=== PATIENT | female | born 1960 | race Caucasian/White ===

== ENCOUNTER 2019-09-21 00:10 | Day surgery (SDC) | payer BC, SELFPAY ==
[2019-09-19 11:08] VITALS: BMI 43.0
[2019-09-20 11:07] VITALS: BP 123/82; PULSE 75; RESP 18; TEMP 36.3; O2SAT 99
[2019-09-21] MEDS: LACTATED RINGERS 1,000 ML 150 ML IV CONT (06:47)
--- NOTE | 2019-09-21 07:23 | PM.IMHP ---
H&P: HPI History of Present Illness Chief complaint: Fam Hx Colon Ca Narrative: Alma Saucedo is a 59 year old female presents for surveillance colonoscopy. Last colonoscopy was in 2007 and had internal hemorrhoid. She denies any acute bowel habit changes, diarrhea, constipation, melena, hematochezia, abdominal pains or rectal pains. Denies any nausea, vomiting, dysphagia, oydnophagia. She does have GERD and is well controlled on pantoprazole. She has family hx of colon cancer in her mother diagnosed at the age of 60. Review of Systems Review of Systems: All systems reviewed & are unremarkable except as noted in HPI and below PMFSH Past Medical History Medical History (Updated 09/21/19 @ 07:27 by Ilda Blake, DIE BAKER) Anxiety Essential (primary) hypertension Gastro-esophageal reflux disease without esophagitis History of torn meniscus of left knee Hyperlipemia Spinal stenosis of lumbar region Unspecified asthma, uncomplicated Surgical History Surgical History (Updated 09/21/19 @ 07:27 by Ilda Blake, DIE BAKER) History of medial meniscus repair of right knee History of robot-assisted laparoscopic hysterectomy Hx of colonoscopy Hx of total hysterectomy Social History Social History Smoking status: Never smoker Second hand tobacco smoke exposure: No Alcohol intake: current Meds Home Medications and Allergies Home Medications Medication Instructions Recorded Confirmed Type temazepam 30 mg capsule 30 mg PO .hs PRN #90 cap 07/10/19 09/21/19 Rx atorvastatin 10 mg tablet 10 mg PO DAILY #30 tablet 07/25/19 09/19/19 Rx lorazepam 1 mg tablet 1 mg PO Q8H PRN #30 tablet 08/29/19 09/19/19 Rx atenolol 50 mg tablet 50 mg PO DAILY 09/05/19 09/19/19 History hydrocodone 5 mg-acetaminophen 325 1 tablet PO Q8H PRN 09/05/19 09/19/19 History mg tablet losartan 100 1 tablet PO DAILY 09/05/19 09/19/19 History mg-hydrochlorothiazide 12.5 mg tablet meloxicam 15 mg tablet 15 mg PO DAILY 09/05/19 09/19/19 History oxybutynin chloride 5 mg tablet 5 mg PO EVERY OTHER DAY 09/05/19 09/19/19 History pantoprazole 40 mg tablet,delayed 40 mg PO QAM 09/05/19 09/19/19 History release buspirone 5 mg PO TID 09/19/19 09/19/19 History cetirizine [Zyrtec] 10 mg PO DAILY 09/19/19 09/19/19 History escitalopram oxalate 20 mg PO DAILY 09/19/19 09/19/19 History Allergies Allergy/AdvReac Type Severity Reaction Status Date / Time terconazole Allergy Unknown Blister Verified 09/21/19 06:49 Vital Signs Vital Signs - 24 hr 09/20/19 11:07 Temperature 36.3 C L Pulse Rate 75 Respiratory Rate 18 Blood Pressure 123/82 Pulse Oximetry 99 Exam Const: General: cooperative, healthy appearing, comfortable, alert and awake Nutritional Appearance: average body habitus Orientation/consciousness: oriented to person, oriented to place, oriented to time and patient oriented x3 Limitations: no limitations HENMT: Head: normal to inspection and normocephalic Mouth: Yes moist mucous membranes and Yes lip abnormal (cold sore noted) Neck: Neck: normal visual inspection, supple and no JVD Carotids: no bruits Resp: Effort & Inspection: normal respiratory effort and no respiratory distress Auscultation: clear to auscultation bilaterally Cardio: Rate: regular rate Rhythm: regular rhythm Heart sounds: S1 normal heart sound present, S2 normal heart sound present, no gallops, no murmurs and no rubs GI: Inspection: normal to inspection and obesity GI Palp: No abdominal tenderness and No No hepatosplenomegaly present Percussion: Yes normal to percussion Auscultation: normal bowel sounds Rectal Exam: deferred Skin: General skin exam: normal color Lesions: no lesions Rashes: no rashes Neuro: General: oriented to person, oriented to place, oriented to time, patient oriented x3 and moves all extremities Cognition (Neuro): normal cognition Speech: normal speech Gait exam (Neuro): N
--- NOTE | 2019-09-21 07:24 | WPDANESEPPF ---
Anes - Initial Pre Proc Eval Procedure: Operation Date: 09/21/19 07:30 Proposed Procedures p Screening Colonoscopy - Juwan Durán DO Date/Time: 09/21/19 07:24 Surgeon: Juwan Durán DO Pre Op Diagnosis: Fam Hx Colon Ca Patient Data Age: 59 Gender: F Height: 5 ft 3 in Weight: 109 kg Last Vital Signs Temp 97.4 F L 09/20/19 11:07 Pulse 75 09/20/19 11:07 Resp 18 09/20/19 11:07 BP 123/82 09/20/19 11:07 Pulse Ox 99 09/20/19 11:07 Allergies Allergy/AdvReac Type Severity Reaction Status Date / Time terconazole Allergy Unknown Blister Verified 09/21/19 06:49 Home Medications Medication Instructions Recorded Confirmed Type temazepam 30 mg capsule 30 mg PO .hs PRN #90 cap 07/10/19 09/21/19 Rx atorvastatin 10 mg tablet 10 mg PO DAILY #30 tablet 07/25/19 09/19/19 Rx lorazepam 1 mg tablet 1 mg PO Q8H PRN #30 tablet 08/29/19 09/19/19 Rx atenolol 50 mg tablet 50 mg PO DAILY 09/05/19 09/19/19 History hydrocodone 5 mg-acetaminophen 325 1 tablet PO Q8H PRN 09/05/19 09/19/19 History mg tablet losartan 100 1 tablet PO DAILY 09/05/19 09/19/19 History mg-hydrochlorothiazide 12.5 mg tablet meloxicam 15 mg tablet 15 mg PO DAILY 09/05/19 09/19/19 History oxybutynin chloride 5 mg tablet 5 mg PO EVERY OTHER DAY 09/05/19 09/19/19 History pantoprazole 40 mg tablet,delayed 40 mg PO QAM 09/05/19 09/19/19 History release buspirone 5 mg PO TID 09/19/19 09/19/19 History cetirizine [Zyrtec] 10 mg PO DAILY 09/19/19 09/19/19 History escitalopram oxalate 20 mg PO DAILY 09/19/19 09/19/19 History Patient hx anesthesia problems: none Family hx anesthesia problems: none PMFSH Social History Social History Smoking status: Never smoker Second hand tobacco smoke exposure: No Alcohol intake: current Anes - Eval Final PreProcedure Day of Procedure 09/21/19 07:24 Patient weight: morbidly obese Heart: regular rate and rhythm Lungs: clear to auscultation Airway: Mallampati scale Neurological: alert and oriented Last oral intake: >/= 8 hours ASA classification: III Emergent: no Anesthetic plan: proceed Anesthesia type and monitoring: general GIVS and standard monitoring Informed Consent: The patient's anesthetic plan and its attendant risks and benefits were discussed with the patient/family/POA. Questions were solicited and answers provided to the satisfaction of the patient/family/POA.
[2019-09-21 08:00] VITALS: BP 99/64; PULSE 65; RESP 12; O2SAT 97
[2019-09-21 08:10] VITALS: BP 108/73; PULSE 64; RESP 22; O2SAT 97
[2019-09-21 08:20] VITALS: BP 117/74; PULSE 62; RESP 16; O2SAT 99
== END 2019-09-21 08:42 | disposition home or self-care (01) ==
PROVIDERS: PCP Internal Medicine; Visit Provider Internal Medicine Gastroenterology
PROC: 0DJD8ZZ Inspection of Lower Intestinal Tract, Via Natural or Artificial Opening Endoscopic (ICD-10-PCS; CPT 45378; principal; 2019-09-21 07:30)
DX: Z12.11 Encounter for screening for malignant neoplasm of colon (principal); D12.2 Benign neoplasm of ascending colon; K62.1 Rectal polyp; Z80.0 Family history of malignant neoplasm of digestive organs; I10 Essential (primary) hypertension; E78.5 Hyperlipidemia, unspecified; K21.9 Gastro-esophageal reflux disease without esophagitis; J45.909 Unspecified asthma, uncomplicated; F41.9 Anxiety disorder, unspecified; E66.01 Morbid (severe) obesity due to excess calories; Z68.41 Body mass index [BMI] 40.0-44.9, adult
CPT/HCPCS: 45380; 88305; J2704; J7120

== ENCOUNTER 2019-10-13 15:26 | Outpatient (CLI) | payer BC, SELFPAY ==
--- NOTE | 2019-10-13 15:40 | ECG_ITS ---
Measurements Intervals [place] Rate: 74 P: 52 DE: 164 QRS: 24 QRSD: 93 T: 10 QT: 402 QTc: 446 Interpretive Statements SINUS RHYTHM BORDERLINE ST-T WAVE ABNORMALITY- INFERIOR LEADS BORDERLINE ECG Electronically Signed On 10-13-2019 16:55:32 [employer]ES AND MARKETING [employer]NALYST by Martin Bell D.O.
== END 2019-10-13 15:27 | disposition home or self-care (01) ==
LOC: ANHCATHLAB 15:29
PROVIDERS: PCP Internal Medicine; Visit Provider Internal Medicine
DX: R00.2 Palpitations (principal); R94.31 Abnormal electrocardiogram [ECG] [EKG]
CPT/HCPCS: 93005

== ENCOUNTER 2020-01-11 15:28 | Outpatient (CLI) | payer BC, SELFPAY ==
--- NOTE | ~2020-01-11 | MR_ITS ---
EXAMINATION: MR shoulder RT wo con DATE: 01/11/2020 16:21 INDICATION: Right shoulder pain TECHNIQUE: Magnetic resonance imaging (MRI) of the right shoulder was performed without intravenous c ontrast. Sequences included axial PD-weighted FS FSE, coronal oblique PD-weighted FS FSE, coronal obl ique T2-weighted FS FSE, sagittal PD-weighted FS FSE, and sagittal T1-weighted SE. COMPARISON: Right shoulder radiographs dated 01/03/2020 FINDINGS: Coracoacromial arch: The acromion undersurface is curved in morphology (type II). Prominent thickening of the coracoacromi al ligament. Mild acromioclavicular osteoarthritis. Rotator cuff: Moderate supraspinatus and infraspinatus tendinopathy. Near full-thickness articular sided tear exten ding to centimeters AP along the superior and middle facet footplates of the supraspinatus and anteri or infraspinatus tendons. There is up to 1 cm medial retraction of the torn portion of the tendon. Th ere appears be remaining thin intact bursal surface to the tendon although small full-thickness perfo ration could not be absolutely excluded. The subscapularis and teres minor tendons are normal. Dorothy l rotator cuff muscle bulk and signal. Biceps tendon, glenoid labrum and glenohumeral cartilage: Long head of the biceps tendon is normal. There is a shallow tear at the posterosuperior chondral lab ral junction which begins at approximately the 12:00 position and extends posteriorly to the 9:30 pos ition. Glenohumeral cartilage is normal. Fluid: Small glenohumeral joint effusion with proportional extension of fluid along the long head biceps ten don sheath. No loose osteochondral bodies. Minimal fluid in the subacromial/subdeltoid bursa consiste nt with mild bursitis. Bones: Normal marrow signal with no edema, fracture or pathologic marrow replacing process. IMPRESSION: 1. Moderate-sized high-grade partial-thickness articular sided tear of the supraspinatus and anterior infraspinatus tendons. 2. Shallow tear at the posterosuperior chondral labral junction. 3. Mild subacromial/subdeltoid bursitis. 4. Mild acromioclavicular osteoarthritis. Reviewed, dictated and finalized at location A. IMPRESSION: 1. Moderate-sized high-grade partial-thickness articular sided tear of the supr aspinatus and anterior infraspinatus tendons. 2. Shallow tear at the posterosuperior chondral labral junction. 3. Mild subacromial/subdeltoid bursitis. 4. Mild acromioclavicular osteoarthritis.
== END 2020-01-11 15:29 | disposition home or self-care (01) ==
PROVIDERS: PCP Internal Medicine; Visit Provider Orthopaedic Surgery
DX: M75.81 Other shoulder lesions, right shoulder (principal); M75.111 Incomplete rotator cuff tear or rupture of right shoulder, not specified as traumatic; S43.491A Other sprain of right shoulder joint, initial encounter; M75.51 Bursitis of right shoulder; M19.011 Primary osteoarthritis, right shoulder
CPT/HCPCS: 73221

== ENCOUNTER 2020-02-08 12:24 | Outpatient (CLI) | payer BC, SELFPAY ==
[2020-02-08 13:34] LABS: Blood Urea Nitrogen 18 mg/dL (7-17); Calcium 9.3 mg/dL (8.4-10.2); Carbon Dioxide 27 mmol/L (22-30); Chloride 102 mmol/L (98-107); Estimated Glomerular Filt Rate > 60; Glucose 99 mg/dL (65-105); Potassium 3.9 mmol/L (3.4-5.0); Sodium 138 mmol/L (137-145)
== END 2020-02-08 12:25 | disposition home or self-care (01) ==
PROVIDERS: Anesthesiology; PCP Internal Medicine; Visit Provider Orthopaedic Surgery
DX: Z51.81 Encounter for therapeutic drug level monitoring (principal)
CPT/HCPCS: 36415; 80048

== ENCOUNTER 2020-02-14 00:50 | Outpatient (CLI) | payer BC, SELFPAY ==
[2020-02-14 18:07] LABS: SARS-CoV-2 RNA PCR Negative
== END 2020-02-14 00:51 | disposition home or self-care (01) ==
LOC: ANHCOVIDDT 00:50
PROVIDERS: PCP Internal Medicine; Visit Provider Orthopaedic Surgery
DX: Z01.818 Encounter for other preprocedural examination (principal); Z11.59 Encounter for screening for other viral diseases
CPT/HCPCS: 87635; C9803; U0003

== ENCOUNTER 2020-02-16 01:37 | Day surgery (SDC) | payer BC, SELFPAY ==
[2020-02-07 10:39] VITALS: BMI 45.7
[2020-02-16] VITALS (10 sets, daily range): BP systolic 117–147; BP diastolic 59–90; PULSE 69–83; RESP 11–19; TEMP 36.2–36.5; O2SAT 96–100
--- NOTE | 2020-02-16 07:06 | WPDHPUPDATE1 ---
History and Physical Update Update Date/Time: 02/16/20 07:06 History and Physical has been reviewed, including an updated exam of the patient. There are NO changes in the patient's condition. Risks, benefits, and alternatives have been discussed and questions answered. Patient agrees to proceed with procedure.
[2020-02-16] MEDS: ACETAMINOPHEN 500 MG TABLET 1000 MG PO (10:55)
--- NOTE | 2020-02-16 11:02 | WPDANESEPPF ---
Anes - Initial Pre Proc Eval Procedure: Operation Date: 02/16/20 13:00 Proposed Procedures p Right Shoulder Arthroscopic Rotator Cuff Repair, Proceed As Indicated - Alvarez Mensah MD Date/Time: 02/16/20 11:02 Surgeon: Alvarez Mensah MD Pre Op Diagnosis: Right Shoulder Rotator Cuff Tear Patient Data Age: 60 Gender: F Height: 5 ft 2 in Weight: 113.4 kg Allergies Allergy/AdvReac Type Severity Reaction Status Date / Time terconazole Allergy Unknown MOUTH Verified 02/07/20 10:40 BLISTERS Home Medications Medication Instructions Recorded Confirmed Type oxybutynin chloride 5 mg tablet 5 mg PO EVERY OTHER DAY 09/05/19 02/07/20 History buspirone 5 mg PO TID 09/19/19 02/07/20 History cetirizine [Zyrtec] 10 mg PO DAILY 09/19/19 02/07/20 History escitalopram oxalate 20 mg PO DAILY 09/19/19 02/07/20 History meloxicam 15 mg tablet 15 mg PO DAILY #90 tablet 10/23/19 02/07/20 Rx pantoprazole 40 mg tablet,delayed 40 mg PO QAM #90 tablet 11/21/19 02/07/20 Rx release atenolol 50 mg tablet 50 mg PO DAILY #90 tablet 11/25/19 02/07/20 Rx losartan 100 1 tablet PO DAILY #90 tablet 12/07/19 02/07/20 Rx mg-hydrochlorothiazide 12.5 mg tablet budesonide 90 mcg/actuation breath 2 inhalation INHALATION Q12H #1 12/15/19 02/07/20 Rx activated powder inhaler each albuterol sulfate 90 mcg/actuation 2 inhalation INHALATION Q4-6H PRN 12/22/19 02/07/20 Rx aerosol inhaler #25.5 gm hydrocodone 5 mg-acetaminophen 325 1 - 2 tablet PO Q6H PRN #30 tablet 02/01/20 02/07/20 Rx mg tablet atorvastatin 10 mg PO DAILY 02/07/20 02/07/20 History temazepam 30 mg PO HS PRN 02/07/20 02/07/20 History Patient hx anesthesia problems: none Family hx anesthesia problems: none PMFSH Past Medical History Medical History Anxiety Essential (primary) hypertension Gastro-esophageal reflux disease without esophagitis History of torn meniscus of left knee Hyperlipemia Rotator cuff tear, right Spinal stenosis of lumbar region Unspecified asthma, uncomplicated Surgical History Surgical History History of medial meniscus repair of right knee History of robot-assisted laparoscopic hysterectomy Hx of colonoscopy Hx of total hysterectomy Family History Family History Mother Carcinoma of colon Family history of arthritis Family history of malignant neoplasm of uterus Grandparent Family history of malignant neoplasm of breast Sibling Patient's sister is in good health Father Cerebrovascular accident Other Family history of malignant neoplasm of breast in first degree relative Social History Social History Smoking status: Never smoker Second hand tobacco smoke exposure: No Alcohol intake: current Drinks per week: 4 Spiritual care concerns: No Anes - Eval Final PreProcedure Day of Procedure 02/16/20 11:02 Patient weight: morbidly obese Heart: regular rate and rhythm Lungs: decreased breath sounds Airway: Mallampati scale class II Neurological: alert and oriented Last oral intake: >/= 8 hours Emergent: no Anesthetic plan: proceed Anesthesia type and monitoring: general ETT and standard monitoring Informed Consent: The patient's anesthetic plan and its attendant risks and benefits were discussed with the patient/family/POA. Questions were solicited and answers provided to the satisfaction of the patient/family/POA.
[2020-02-16] MEDS: KETOROLAC 15 MG/ML VIAL (*BKC) IV PUSH (11:10)
[2020-02-16] MEDS: LACTATED RINGERS 1,000 ML 30 ML IV CONT ×2 (11:10→14:24)
[2020-02-16] MEDS: ceFAZolin 2 GM/D5W 50 ML 2 GM/50 ML BAG IVPB (11:42)
[2020-02-16] MEDS: BUPIVACAINE/EPINEPHRINE 0.5% 30 ML VIAL INFILTRATE (12:22)
--- NOTE | 2020-02-16 14:19 | P.OP_ITS ---
Procedure Note - Detailed Date of procedure: 02/16/20 Pre-op diagnosis: Right Shoulder Rotator Cuff Tear Post-op diagnosis: other ( 1. Large rotator cuff tear. 2. Biceps tendonosis 3. Subacromial impingement.) Procedure performed: 1. Arthrosocopic rotator cuff repair. 2. Arthroscopic subacromial decompression. 3. Arthroscopic biceps tenodesis. Description of procedure: Large rotator cuff tear of the supra and infraspinatus. Mild retraction. C-shaped crescent stick shaped tear. [place] shaped tear. Biceps was partially ruptured. Arthroscopic tenodesis was performed through bone tunnels. Three bone tunnels were created for 9 simple sutures. Subacromial decompression was performed. The bursa and tissue under the acromion was markedly thickened. This may have accounted for the chronic impingement, or occurred as a consequence. Anesthesia: GETA Surgeon: Alvarez Mensah MD Estimated blood loss (mL): 20 Complications: None Disposition: PACU Findings: Operative detail: Preoperative antibiotics were given. An interscalene block was administered in the preoperative area. The patient was bought brought to the operating room. A general anesthetic was administered. The patient was carefully positioned in the beach chair position. The head and neck were carefully positioned. The non operative extremity was also carefully positioned. The shoulder was prepped and draped in the usual sterile fashion. Examination was performed. Standard posterior and anterior arthroscopic portals were established. Inflow achieved with the arthroscopic pump using saline and epinephrine. The glenohumeral joint was carefully inspected. The biceps tendon was released. The rotator cuff footprint was lightly decorticated with the arthroscopic visualization. The subscapularis was normal. The articular cartilage and labrum were normal. Attention was turned to the subacromial space. A complete bursectomy was performed. The rotator cuff and footprint were lightly debrided. A modest acromioplasty was performed. The tear configuration was carefully assessed. At this point, 3 tunnels were created at the rotator cuff. The ArthroTunneler technique was utilized. Three sutures were passed through each tunnel. All sutures were then passed through the cuff tissue; except the anterior tunnel suture which was placed through the biceps tendon and a locking loop stitch was passed. The sutures were tied arthroscopically. The arthroscopic instruments were removed. The wounds were closed with 3-0 Monocryl subcuticular suture and steri strips. There were no complications. A sling was applied and the patient brought to the recovery room.
--- NOTE | 2020-02-16 14:55 | SUR.PHASEI ---
1455 nebulizer,albuterol tx given.
== END 2020-02-16 16:36 | disposition home or self-care (01) ==
PROVIDERS: PCP Internal Medicine; Visit Provider Orthopaedic Surgery
PROC: (CPT 29805; principal; 2020-02-16 13:00)
DX: M75.101 Unspecified rotator cuff tear or rupture of right shoulder, not specified as traumatic (principal); M75.21 Bicipital tendinitis, right shoulder; M75.41 Impingement syndrome of right shoulder; I10 Essential (primary) hypertension; E78.5 Hyperlipidemia, unspecified; K21.9 Gastro-esophageal reflux disease without esophagitis; J45.909 Unspecified asthma, uncomplicated; F41.9 Anxiety disorder, unspecified; E66.01 Morbid (severe) obesity due to excess calories; Z68.42 Body mass index [BMI] 45.0-49.9, adult
CPT/HCPCS: 29827; 29828; 29826; A9270; J0330; J0690; J1100; J1885; J2250; J2405; J2704; J3010; J7120

== ENCOUNTER 2020-03-13 13:42 | Emergency (ER) | payer BC, SELFPAY ==
[2020-03-13] VITALS (7 sets, daily range): BP systolic 122–164; BP diastolic 68–96; PULSE 71–90; RESP 13–20; TEMP 36.3; O2SAT 97–99
--- NOTE | ~2020-03-13 | CT_ITS ---
EXAMINATION: CTA chest PE protocol EXAM DATE: 03/13/2020 15:57 INDICATION: Shortness of breath, elevated d-dimer. TECHNIQUE: Spiral CTA of the chest (pulmonary arteries) was performed with 100 cc Omnipaque 350 intr avenous contrast injection. Images were acquired during the pulmonary arterial phase. Coronal maxi mum intensity projection 3D-reconstructions were created by the technologist on dedicated workstation . Axial, coronal and sagittal reformatted images were reviewed. The dose-length product (DLP) for t his examination was 814.77 mGy-cm. The exposure was tailored according to patient size (auto mA exp osure control), and iterative reconstruction (ASIR) was used as additional dose reduction technique. There is no prior study for comparison. FINDINGS: Pulmonary arteries are well opacified and without intraluminal filling defects. No thora cic aortic dissection. The lungs are clear. There are no pleural or pericardial effusions. Trach eobronchial tree is patent. There is no mediastinal, hilar or axillary lymphadenopathy. There is no pneumothorax. Heart normal in size. No evidence of coronary arterial calcification. There is hepatic steatosis. There is mild thoracic spondylosis without osteoblastic or osteolytic lesions jony ntified. IMPRESSION: No pulmonary emboli or acute cardiopulmonary findings. Reviewed, dictated and finalized at location A.
--- NOTE | ~2020-03-13 | XR_ITS ---
XR chest 2V DATE: 03/13/2020 14:55 INDICATION: Shortness of breath and cough. TECHNIQUE: PA and lateral views COMPARISON: None FINDINGS: Normal heart size. No hilar or mediastinal enlargement. No pulmonary infiltrate or consolid ation, pleural effusion or pulmonary vascular congestion or pneumothorax. Included skeletal structures are unremarkable. IMPRESSION: Reviewed, dictated and finalized at location B. IMPRESSION:
--- NOTE | 2020-03-13 13:45 | ECG_ITS ---
Measurements Intervals [place] Rate: 79 P: 12 AR: 160 QRS: 48 QRSD: 96 T: 55 QT: 385 QTc: 443 Interpretive Statements SINUS RHYTHM BASELINE ARTIFACT- I, II, III, AVR, AVL, AVF, V1-V3 BORDERLINE ECG Electronically Signed On 03-13-2020 13:55:52 CDT by Martin Bell D.O.
[2020-03-13 14:09] LABS: Basophils Absolute Auto 0.1 K/mm3 (0.0-0.1); Basophils Percent Auto 0.5 % (0.2-1.2); Eosinophils Absolute Auto 0.1 K/mm3 (0-0.3); Eosinophils Percent Auto 0.5 % (0-4.4); Hemoglobin 14.3 g/dL (12.0-15.0); Immature Granulocyte Absolute 0.04 K/mm3 (0.00-0.031); Immature Granulocyte Percent A 0.4 % (0-0.5); Lymphocytes Absolute Auto 1.29 K/mm3 (0.9-3.2); Lymphocytes Percent Auto 12.8 % (18.3-44.2); Mean Corpuscular Volume 88.1 fl (80-100); Mean Platelet Volume 9.2 fl (7.4-10.4); Monocytes Absolute Auto 0.5 K/mm3 (0.1-0.6); Monocytes Percent Auto 5.3 % (2.6-8.5); Neutrophils Absolute Auto 8.1 K/mm3 (1.3-6.7); Neutrophils Percent Auto 80.5 % (45.5-73.1); Platelet Count Result 349 k/mm3 (150-375); Red Blood Count 4.77 M/mm3 (4.2-5.4); Red Cell Distribution Width 12.7 % (11.5-14.5); White Blood Count 10.1 K/mm3 (4.5-10.0)
[2020-03-13 14:30] LABS: Blood Urea Nitrogen 14 mg/dL (7-17); Calcium 9.2 mg/dL (8.4-10.2); Carbon Dioxide 24 mmol/L (22-30); Chloride 106 mmol/L (98-107); Estimated CRCL calculation 92 ml/min; Estimated Glomerular Filt Rate > 60; Glucose 123 mg/dL (65-105); Sodium 139 mmol/L (137-145)
[2020-03-13 15:38] LABS: D Dimer 0.53 ug/mL (<0.48)
--- NOTE | 2020-03-13 16:52 | ED.GENADULT ---
HPI - General Adult General Chief complaint: Shortness of Breath/Dyspnea Stated complaint: cough, SOB high D dimer Time Seen by Provider: 03/13/20 15:13 History of Present Illness HPI narrative: Patient is a 60 y/o female complaining of mild to moderate SOB for last 3 weeks. She states her SOB is worse since 1 week ago. She used her inhaler and Nebulizer, which did not help. She has some dry cough. She denies any fever. She had recent lab done and was told to come to ED for evaluation for abnormal D-Dimer. Of note, she had recent should surgery. Related Data Home Medications Medication Instructions Recorded Confirmed oxybutynin chloride 5 mg tablet 5 mg PO EVERY OTHER DAY 09/05/19 02/07/20 Zyrtec 10 mg PO DAILY 09/19/19 02/07/20 buspirone 5 mg PO TID 09/19/19 02/07/20 escitalopram oxalate 20 mg PO DAILY 09/19/19 02/07/20 atorvastatin 10 mg PO DAILY 02/07/20 02/07/20 temazepam 30 mg PO HS PRN 02/07/20 02/07/20 Allergies Allergy/AdvReac Type Severity Reaction Status Date / Time terconazole Allergy Unknown MOUTH Verified 03/12/20 09:16 BLISTERS Review of Systems Constitutional: Constitutional: Denies chills, Denies fever(s), Denies headache(s) and Denies weakness Eyes: Eyes: Denies blurry vision ENT: Denies headache(s) and Denies neck pain Cardiovascular: Cardiovascular: Denies chest pain and Reports dyspnea Respiratory: Respiratory: Reports cough and Reports dyspnea Gastrointestinal: Gastrointestinal: Denies abdominal pain, Denies diarrhea, Denies nausea and Denies vomiting Genitourinary: Genitourinary: Denies hematuria and Denies dysuria Musculoskeletal: Musculoskeletal: Denies back pain and Denies neck pain Neurologic: Denies headache(s) and Denies weakness PMF Past Medical History Medical History Anxiety Essential (primary) hypertension Gastro-esophageal reflux disease without esophagitis History of torn meniscus of left knee Hyperlipemia Rotator cuff tear, right Spinal stenosis of lumbar region Unspecified asthma, uncomplicated Surgical History Surgical History History of medial meniscus repair of right knee History of repair of right rotator cuff (~02/16/20) arthroscopic, SAD/bicep tenodesis History of robot-assisted laparoscopic hysterectomy Hx of colonoscopy Hx of total hysterectomy Family History Family History Mother Carcinoma of colon Family history of arthritis Family history of malignant neoplasm of uterus Grandparent Family history of malignant neoplasm of breast Sibling Patient's sister is in good health Father Cerebrovascular accident Other Family history of malignant neoplasm of breast in first degree relative Social History Social History Smoking status: Never smoker Second hand tobacco smoke exposure: No Alcohol intake: current Drinks per week: 4 Substance use: never Gender identity (if verbalized by the patient): Female Spiritual care concerns: No Exam Const: General: no acute distress and well developed Orientation/consciousness: oriented to person, oriented to place, oriented to time and patient oriented x3 HENMT: Head: normocephalic Ears: external ears normal General nose exam: Normal external nose present Eyes: General: appearance normal, both eyes and all related structures Conjunctivae: conjunctivae normal Neck: Neck: normal visual inspection and full ROM Chest: Chest palpation & inspection: normal inspection of the chest and no tenderness Resp: Effort & Inspection: normal respiratory effort and able to speak in complete sentences Cardio: Rate: regular rate Rhythm: regular rhythm GI: GI Palp: No abdominal tenderness and Yes Soft to palpation Skin: General skin exam: normal color and turgor normal Neuro:
[2020-03-13 17:51] LABS: Troponin I < 0.012 ng/mL (0.000-0.034)
[2020-03-14 14:05] LABS: SARS-CoV-2 RNA PCR Negative
== END 2020-03-13 18:31 | disposition home or self-care (01) ==
PROVIDERS: General Practice; Emergency Provider Emergency Medicine; PCP Internal Medicine
DX: J45.909 Unspecified asthma, uncomplicated (principal); F41.9 Anxiety disorder, unspecified; I10 Essential (primary) hypertension; K21.9 Gastro-esophageal reflux disease without esophagitis; E78.5 Hyperlipidemia, unspecified; Z20.828 Contact with and (suspected) exposure to other viral communicable diseases
CPT/HCPCS: 36415; 71046; 71275; 80048; 84484; 85025; 85380; 87635; 93005; 99284; C9803; Q9967; U0003

== ENCOUNTER → 2020-11-26 11:34 | Outpatient (CLI) | payer BC, SELFPAY ==
--- NOTE | ~2020-11-26 | MM_ITS ---
EXAMINATION: MM screening santy BI w felipa HISTORY: Screening mammogram TECHNIQUE: Craniocaudal and mediolateral oblique 3-D tomosynthesis images were obtained and synthetic 2-D images were generated. CAD analysis was submitted and interpreted. COMPARISON: 11/23/2018, 09/18/2017, 09/09/2016 bilateral digital screening mammogram examinations BREAST PARENCHYMAL COMPOSITION: There are scattered areas of fibroglandular density. FINDINGS: There is no evidence of suspicious mass, calcification, or architectural distortion to sugg est malignancy in either breast. There has been no suspicious interval change. IMPRESSION: 1. No mammographic evidence of malignancy. 2. Recommend routine screening mammography in one year. BI-RADS Category 1: Negative Reviewed, dictated and finalized at location A.
== END ==
PROVIDERS: PCP Internal Medicine; Visit Provider Obstetrics & Gynecology
DX: Z12.31 Encounter for screening mammogram for malignant neoplasm of breast (principal)
CPT/HCPCS: 77063; 77067

== ENCOUNTER → 2021-04-08 17:36 | Outpatient (CLI) | payer BC, SELFPAY ==
--- NOTE | ~2021-04-08 | MR_ITS ---
EXAMINATION: MR shoulder LT wo con DATE: 04/08/2021 18:49 INDICATION: Left shoulder pain. TECHNIQUE: Magnetic resonance imaging (MRI) of the left shoulder was performed without intravenous co ntrast. Sequences included axial PD-weighted FS FSE, coronal oblique PD-weighted FS FSE and T2-weight ed FS FSE, and sagittal oblique T2-weighted FS FSE and T1-weighted FSE. COMPARISON: Left shoulder radiographs 02/24/2021 FINDINGS: Coracoacromial arch: The acromion undersurface is curved in morphology (type II). There is mild acromioclavicular joint os teoarthritis. There is moderate subacromial/subdeltoid bursitis. Rotator cuff: There is a near full-thickness tear of anterior supraspinatus tendon measuring 9 mm anterior to poste rior by 5 mm proximal to distal. There is severe supraspinatus and infraspinatus tendinopathy. There is a small interstitial tear at the infraspinatus myotendinous junction. Teres minor tendon is normal . There is mild subscapularis tendinopathy. There is no asymmetric fatty atrophy of the rotator cuff muscle bellies. Biceps tendon and glenoid labrum: Biceps tendon is in bicipital groove. There is mild intra-articular biceps tendinopathy. The glenoid labrum is normal. Fluid: There is a small glenohumeral joint effusion. Bones/cartilage: Glenoid cartilage is normal. The humeral cartilage is normal. IMPRESSION: 1. Severe rotator cuff tendinopathy with near full-thickness tear of anterior supraspinatus tendon. S mall interstitial tear involving infraspinatus myotendinous junction. 2. Mild intra-articular biceps tendinopathy. 3. Mild acromioclavicular joint osteoarthritis. 4. Moderate subacromial/subdeltoid bursitis. 5. Small glenohumeral joint effusion. Reviewed, dictated and finalized at location A. IMPRESSION: 1. Severe rotator cuff tendinopathy with near full-thickness tear of anterior s upraspinatus tendon. Small interstitial tear involving infraspinatus myotendino us junction. 2. Mild intra-articular biceps tendinopathy. 3. Mild acromioclavicular joint osteoarthritis. 4. Moderate subacromial/subdeltoid bursitis. 5. Small glenohumeral joint effusion.
== END ==
PROVIDERS: PCP Internal Medicine; Visit Provider Physician Assistant Surgical
DX: M19.012 Primary osteoarthritis, left shoulder (principal); M75.52 Bursitis of left shoulder; M25.412 Effusion, left shoulder
CPT/HCPCS: 73221

== ENCOUNTER 2021-05-20 13:04 | Outpatient (CLI) | payer BC, SELFPAY ==
--- NOTE | 2021-05-20 13:15 | ECG_ITS ---
Measurements Intervals [place] Rate: 68 P: 52 RI: 186 QRS: 29 QRSD: 92 T: 18 QT: 391 QTc: 419 Interpretive Statements SINUS RHYTHM DELAYED PRECORDIAL R/S TRANSITION LOW QRS VOLTAGE IN PRECORDIAL LEADS BASELINE ARTIFACT- I, II, III, AVR, AVL, AVF BORDERLINE ECG Electronically Signed On 05-20-2021 13:35:04 CDT by Martin Bell D.O.
[2021-05-20 14:05] LABS: Anion Gap 8 mmol/L (8-16); Blood Urea Nitrogen 15 mg/dL (7-17); Calcium 9.4 mg/dL (8.4-10.2); Carbon Dioxide 29 mmol/L (22-30); Chloride 103 mmol/L (98-107); Estimated Glomerular Filt Rate > 60; Glucose 96 mg/dL (65-110); Potassium 4.1 mmol/L (3.4-5.0); Sodium 140 mmol/L (137-145)
== END 2021-05-20 13:05 | disposition home or self-care (01) ==
LOC: ANHSURGERY 13:09
PROVIDERS: Anesthesiology; PCP Internal Medicine; Visit Provider Orthopaedic Surgery
DX: Z01.818 Encounter for other preprocedural examination (principal); I10 Essential (primary) hypertension; E78.5 Hyperlipidemia, unspecified; Z79.899 Other long term (current) drug therapy
CPT/HCPCS: 36415; 80048; 93005

== ENCOUNTER 2021-05-23 00:13 | Day surgery (SDC) | payer BC, SELFPAY ==
[2021-05-15 14:12] VITALS: BMI 45.7
--- NOTE | 2021-05-22 08:29 | WPDANESEPPF ---
Anes - Initial Pre Proc Eval Procedure: Operation Date: 05/23/21 07:30 Proposed Procedures p Left Arthroscopic Rotator Cuff Repair, with Subacromial Decompression - Alvarez Mensah MD Date/Time: 05/22/21 08:29 Surgeon: Alvarez Mensah MD Pre Op Diagnosis: complete rotator cuff tear left shoulder Patient Data Age: 61 Gender: F Height: 1.57 m Weight: 113.4 kg Allergies Allergy/AdvReac Type Severity Reaction Status Date / Time terconazole Allergy Unknown MOUTH Verified 05/23/21 06:57 BLISTERS Home Medications Medication Instructions Recorded Confirmed Type Zyrtec 10 mg PO DAILY 09/19/19 05/23/21 History buspirone 5 mg PO TID 09/19/19 05/23/21 History escitalopram oxalate 20 mg PO DAILY 09/19/19 05/23/21 History albuterol sulfate 90 mcg/actuation 2 inhalation INHALATION Q4-6H PRN 12/22/19 05/23/21 Rx aerosol inhaler #25.5 gm alprazolam [Xanax] 0.5 mg PO DAILY 09/24/20 05/23/21 History fluticasone propionate 50 1 spray INTRANASAL DAILY 12/11/20 05/23/21 History mcg/actuation nasal spray,suspension hydroxychloroquine 200 mg tablet 200 mg PO DAILY 12/11/20 05/23/21 History lifitegrast 5 % eye drops in a 1 drp EACH EYE BID 12/11/20 05/23/21 History dropperette budesonide 90 mcg/actuation breath 2 inh INHALATION Q12H #3 ea 12/25/20 05/23/21 Rx activated powder inhaler atorvastatin 10 mg tablet 10 mg PO DAILY #90 tablet 01/01/21 05/23/21 Rx hydrocodone 5 mg-acetaminophen 325 1 tablet PO Q4-6H PRN #20 tablet 05/15/21 05/23/21 Rx mg tablet MDD 6 magnesium 1 tablet PO DAILY 05/15/21 05/23/21 History multivitamin 1 tablet PO DAILY 05/15/21 05/23/21 History pantoprazole 40 mg PO DAILY 05/15/21 05/23/21 History atenolol 50 mg tablet 50 mg PO DAILY #90 tablet 05/18/21 05/23/21 Rx losartan 100 1 tablet PO DAILY #90 tablet 05/18/21 05/23/21 Rx mg-hydrochlorothiazide 12.5 mg tablet Patient hx anesthesia problems: none Family hx anesthesia problems: none Results Review: All pre-operative results and documents have been reviewed as part of the pre-operative evaluation. [facility] Past Medical History Medical History (Updated 05/22/21 @ 08:30 by Brent Bazan MD) Anxiety Depression Essential (primary) hypertension Gastro-esophageal reflux disease without esophagitis History of torn meniscus of left knee Hyperlipemia Morbid obesity with BMI of 45.0-49.9, adult Rotator cuff tear, right Sjogren's syndrome Spinal stenosis of lumbar region Unspecified asthma, uncomplicated Surgical History Surgical History History of medial meniscus repair of right knee History of repair of right rotator cuff (~02/16/20) arthroscopic, SAD/bicep tenodesis History of robot-assisted laparoscopic hysterectomy Hx of colonoscopy Hx of total hysterectomy Family History Family History Mother Carcinoma of colon Family history of arthritis Family history of malignant neoplasm of uterus Grandparent Family history of malignant neoplasm of breast Sibling Patient's sister is in good health Father Cerebrovascular accident Other Family history of malignant neoplasm of breast in first degree relative Social History Social History Smoking status: Never smoker Second hand tobacco smoke exposure: No Alcohol intake: current Drinks per week: 2 Substance use: never Substance use type: does not use Living arrangements: with family Gender identity (if verbalized by the patient): Female Spiritual care concerns: No Anes - Eval Final PreProcedure Day of Procedure 05/22/21 08:29 Patient weight: morbidly obese Heart: regular rate and rhythm Lungs: clear to auscultation and normal air movement Airway: Mallampati scale class II Neurological: alert and oriented Last oral intake: >/= 8 hours ASA clas
[2021-05-23] VITALS (8 sets, daily range): BP systolic 103–132; BP diastolic 59–76; PULSE 75–83; RESP 16–22; TEMP 36.1–36.2; O2SAT 92–100
[2021-05-23] MEDS: KETOROLAC 15 MG/ML VIAL (*BKC) IV PUSH (06:49)
[2021-05-23] MEDS: ACETAMINOPHEN 500 MG TABLET 1000 MG PO (06:49)
[2021-05-23] MEDS: LACTATED RINGERS 1,000 ML 30 ML IV CONT (06:50)
--- NOTE | 2021-05-23 07:03 | WPDANESPNB ---
Anes - Peripheral Nerve Block Date/Time: 05/23/21 07:03 I have discussed with the patient/family/POA the placement of a peripheral nerve block for post-operative pain management, including associated risks, benefits, complications, and side effects. Alternative methods of post-operative analgesia were detailed. Questions were solicited and answers provided to the satisfaction of the patient/family/POA. Time-Out: A pre-procedural Time-Out was completed immediately before starting the procedure and confirmed: Patient Identification, Site, Procedure, Patient Position and the Availability of Requisite Equipment. Clinical Indications: Acute post-operative pain management requested by the operative surgeon. Nerve Block Insertion Note Anes-nerve block: supraclavicular left Patient position: supine Skin prep: chlorhexidine Needle: 22 gauge, stimulating, insulated echogenic needle. Needle length: 80 mm Technique: ultrasound (in plane) Injectate: bupivacaine 0.5% with epi 5 mcg/ml (20cc) Observations: tolerated well Complications: none Procedure start time:: 745 Procedure end time:: 750
--- NOTE | 2021-05-23 07:43 | WPDHPUPDATE1 ---
History and Physical Update Update Date/Time: 05/23/21 07:43 History and Physical has been reviewed, including an updated exam of the patient. There are NO changes in the patient's condition. Risks, benefits, and alternatives have been discussed and questions answered. Patient agrees to proceed with procedure.
[2021-05-23] MEDS: ONDANSETRON INJ 4 MG/2 ML VIAL IV PUSH (10:21)
--- NOTE | 2021-05-23 16:27 | W.PM.PROC2 ---
Procedure Note - Detailed Date of Procedure 05/23/21 Pre-op Diagnosis Complete rotator cuff tear left shoulder Post-op Diagnosis other (1. Left rotator cuff tear 2. Subacromial impingement) Procedure Performed 1. Arthroscopic rotator cuff repair 2. Arthroscopic subacromial decompression Surgeon Alvarez Mensah MD State Auditor Danyelle Godinez PA-C Anesthesia general and regional ( interscalene block) Findings Large crescentic supraspinatus tear with mild retraction. Mild synovitis. Biceps and subscapularis normal. Description of Procedure Physician plant attendant or assistant operator, Danyelle Godinez PA-C, required for surgery; including patient positioning, draping, arthroscopic camera operation, maintaining instrument position, suture retrieval, wound closure, and dressing and sling placement. Preoperative antibiotics were given. An interscalene block was administered in the preoperative area. The patient was bought brought to the operating room. A general anesthetic was administered. The patient was carefully positioned in the beach chair position. The head and neck were carefully positioned. The non operative extremity was also carefully positioned. The shoulder was prepped and draped in the usual sterile fashion. Examination was performed. Standard posterior and anterior arthroscopic portals were established. Inflow achieved with the arthroscopic pump using saline and epinephrine. The glenohumeral joint was carefully inspected. The supraspinatus tear was identified but there were no other significant pathological findings. Cartilage was normal. Subscapularis and biceps intact. Mild synovitis. Attention was turned to the subacromial space. A complete bursectomy was performed. The rotator cuff and footprint were lightly debrided. A modest acromioplasty was performed. The tear configuration was carefully assessed. At this point, 2 tunnels were created at the rotator cuff. The ArthroTunneler technique was utilized. Three sutures were passed through each tunnel. All sutures were then passed through the cuff tissue. The sutures were tied arthroscopically. The arthroscopic instruments were removed. The wounds were closed with 3-0 Monocryl subcuticular suture and steri strips. There were no complications. A sling was applied and the patient brought to the recovery room. Estimated Blood Loss -25.0 Pathology none sent Complications No immediate complications Condition stable Disposition PACU
== END 2021-05-23 12:15 | disposition home or self-care (01) ==
PROVIDERS: PCP Internal Medicine; Visit Provider Orthopaedic Surgery
PROC: (CPT 29805; principal; 2021-05-23 07:30)
DX: M75.122 Complete rotator cuff tear or rupture of left shoulder, not specified as traumatic (principal); M75.42 Impingement syndrome of left shoulder; M65.812 Other synovitis and tenosynovitis, left shoulder; G89.18 Other acute postprocedural pain; E78.5 Hyperlipidemia, unspecified; K21.9 Gastro-esophageal reflux disease without esophagitis; E66.01 Morbid (severe) obesity due to excess calories; Z68.42 Body mass index [BMI] 45.0-49.9, adult; Z79.51 Long term (current) use of inhaled steroids
CPT/HCPCS: 64415; 29826; 29827; 36415; 80048; 93005; A9270; J0330; J1100; J1885; J2250; J2405; J2704; J2710; J3010; J7120

== ENCOUNTER → 2022-01-28 13:30 | Outpatient (CLI) | payer BC, SELFPAY ==
--- NOTE | ~2022-01-28 | MM_ITS ---
EXAMINATION: MM screening [facility] BI w [place] HISTORY: Screening mammogram TECHNIQUE: Craniocaudal and mediolateral oblique 3-D tomosynthesis images were obtained and synthetic 2-D images were generated. CAD analysis was submitted and interpreted. COMPARISON: 11/26/2020, 11/23/2018, bilateral screening mammogram examinations BREAST PARENCHYMAL COMPOSITION: There are scattered areas of fibroglandular density. FINDINGS: There is no evidence of suspicious mass, calcification, or architectural distortion to sugg est malignancy in either breast. There has been no suspicious interval change. IMPRESSION: 1. No mammographic evidence of malignancy. 2. Recommend routine screening mammography in one year. BI-RADS Category 1: Negative Reviewed, dictated and finalized at location A.
== END ==
PROVIDERS: PCP Internal Medicine; Visit Provider Obstetrics & Gynecology
DX: Z12.31 Encounter for screening mammogram for malignant neoplasm of breast (principal)
CPT/HCPCS: 77063; 77067

== ENCOUNTER 2022-03-18 11:49 | Outpatient (CLI) | payer BC, SELFPAY ==
--- NOTE | ~2022-03-18 | CT_ITS ---
EXAMINATION: CT sinus wo con DATE: 03/18/2022 12:02 INDICATION: Congestion TECHNIQUE: Computed tomography (CT) of the paranasal sinuses was performed without contrast. Iterativ e reconstruction technique was employed. Exam dose: 267.62 mGy-cm total exam DLP. COMPARISON: None FINDINGS: There is rightward deviation of the nasal septum. Mild suyapa bullosa of right middle nasal turbinate. Intralamellar cell of left middle nasal turbinat e Moderate soft tissue swelling of the nasal turbinates, left greater than right. The ostiomeatal units are patent bilaterally. There is slight mucoperiosteal thickening in the lower aspect of the left maxillary sinus and minimal focal soft tissue thickening along the posterior aspect of the left sphenoid sinus. The paranasal si nuses are otherwise normally aerated, without fluid levels. Normal development and aeration of the mastoid air cells. Middle and inner ear apparatus appear normal bilaterally. IMPRESSION: Rightward deviation of nasal septum Mild suyapa bullosa of right middle nasal turbinate Intralamellar cell of left middle nasal turbinate Minimal mucoperiosteal thickening of left maxillary and left sphenoid sinuses Reviewed, dictated and finalized at Location A. Reviewed, dictated and finalized at location B.
== END 2022-03-18 11:50 ==
LOC: MICIMG 11:50
PROVIDERS: PCP Internal Medicine; Visit Provider Otolaryngology
DX: R09.82 Postnasal drip (principal); R09.81 Nasal congestion; J34.89 Other specified disorders of nose and nasal sinuses; J34.3 Hypertrophy of nasal turbinates; J34.2 Deviated nasal septum; J32.9 Chronic sinusitis, unspecified
CPT/HCPCS: 70486

== ENCOUNTER → 2022-03-23 13:28 | Outpatient (CLI) | payer BC, SELFPAY ==
--- NOTE | ~2022-03-23 | XR_ITS ---
EXAMINATION:[id number] DATE: 03/23/2022 13:48 INDICATION: Neck pain TECHNIQUE: AP, lateral, lateral swimmers and odontoid views of the cervical spine are provided. COMPARISON: None FINDINGS: There are 2 mm of retrolisthesis of C5 on C6. There is severe loss of intervertebral disc s pace height at C5-6. The odontoid is intact. No fracture is identified. The vertebral body heights ar e normal. There is reversal of the normal cervical lordosis. There is moderate facet and uncovertebra l joint osteoarthritis. Prevertebral soft tissues are normal. IMPRESSION: 1. Severe cervical spondylosis at C5-6. Reviewed, dictated and finalized at location A.
== END ==
PROVIDERS: PCP Internal Medicine; Visit Provider Internal Medicine
DX: M54.2 Cervicalgia (principal); M47.812 Spondylosis without myelopathy or radiculopathy, cervical region
CPT/HCPCS: 72040

== ENCOUNTER 2022-04-03 14:23 | Outpatient (CLI) | payer BC, SELFPAY ==
--- NOTE | ~2022-04-03 | MR_ITS ---
EXAMINATION: MR cervical spine wo con DATE: 04/03/2022 14:58 INDICATION: Severe cervical spondylosis. TECHNIQUE: Magnetic resonance imaging (MRI) of the cervical spine was performed without intravenous c ontrast. Sequences included sagittal T2-weighted FSE, sagittal T2-weighted FS FSE, sagittal T1-weight ed FSE, axial MERGE, and axial T2-weighted FSE. COMPARISON: Cervical spine radiographs 03/23/2022 FINDINGS: There is 2 mm retrolisthesis of C5 on C6. There is kyphosis of cervical spine. Vertebral maverick dy heights are normal. There is severely decreased disc height at C5-C6. The spinal cord signal inten sity is normal. The following disc levels are specifically discussed: C2-C3: The disc does not extend beyond the endplate margin. There is mild left uncovertebral joint os teoarthritis. There is mild bilateral facet joint osteoarthritis. There is no neural foraminal stenos is. There is no central canal stenosis. C3-C4: The disc does not extend beyond the endplate margin. There is mild left uncovertebral joint os teoarthritis. There is moderate right and severe left facet joint osteoarthritis. There is moderate l eft neural foraminal stenosis. There is no central canal stenosis. C4-C5: The disc is bulging. There is mild bilateral uncovertebral joint osteoarthritis. There is tong re right and moderate left facet joint osteoarthritis. There is mild right neural foraminal stenosis. There is no central canal stenosis. C5-C6: The disc is bulging. There is severe bilateral uncovertebral joint osteoarthritis. There is mo derate right and mild left facet joint osteoarthritis. There is severe bilateral neural foraminal valerie nosis. There is mild central canal stenosis. C6-C7: The disc does not extend beyond the endplate margin. There is moderate bilateral uncovertebral joint osteoarthritis. There is severe right and mild left facet joint osteoarthritis. There is mild right neural foraminal stenosis. There is no central canal stenosis. C7-T1: The disc does not extend beyond the endplate margin. There is no uncovertebral joint osteoarth ritis. There is moderate bilateral facet joint osteoarthritis. There is mild bilateral neural foramin al stenosis. There is no central canal stenosis. IMPRESSION: 1. Severe spondylosis at C5-C6 and mild spondylosis at other levels. Reviewed, dictated and finalized at location A.
== END 2022-04-03 14:24 ==
LOC: MICIMG 14:23
PROVIDERS: PCP Internal Medicine; Visit Provider Physician Assistant
DX: M47.812 Spondylosis without myelopathy or radiculopathy, cervical region (principal)
CPT/HCPCS: 72141

== ENCOUNTER 2023-01-22 12:15 | Outpatient (CLI) | payer BC, SELFPAY ==
--- NOTE | ~2023-01-22 | US_ITS ---
US thyroid INDICATION: Thyroid nodule TECHNIQUE: Real-time sonographic images of the thyroid gland were obtained. COMPARISON: No prior studies for comparison. FINDINGS: The right thyroid lobe measures 4 x 1.5 x 1.4 cm. The left thyroid lobe measures 3.6 x 1.5 x 1.3 cm. In the right lobe there is a small benign-appearing 3 mm cyst. In the left lobe there is a 11 x 8 x 7 mm slightly hypoechoic solid mass which is wider than tall, smoothly marginated without e chogenic foci, TR 4. Normal Doppler signal in the thyroid gland. IMPRESSION: 1. Left thyroid mass measuring 11 mm, TR 4, likely benign. Follow-up ultrasound in 12 months recomme nded. Reviewed, dictated and finalized at location A. IMPRESSION: 1. Left thyroid mass measuring 11 mm, TR 4, likely benign. Follow-up ultrasoun d in 12 months recommended.
== END 2023-01-22 12:16 ==
PROVIDERS: PCP Internal Medicine; Visit Provider Registered Nurse
DX: E04.9 Nontoxic goiter, unspecified (principal)
CPT/HCPCS: 76536

== ENCOUNTER → 2023-04-02 12:07 | Outpatient (CLI) | payer BC, SELFPAY ==
--- NOTE | ~2023-04-02 | MM_ITS ---
EXAMINATION: MM screening [facility] BI w [place] HISTORY: Screening mammogram TECHNIQUE: Craniocaudal and mediolateral oblique 3-D tomosynthesis images were obtained and synthetic 2-D images were generated. CAD analysis was submitted and interpreted. COMPARISON: 01/28/2022, 11/23/2018 BREAST PARENCHYMAL COMPOSITION: There are scattered areas of fibroglandular density. FINDINGS: No suspicious mass, calcification, or architectural distortion are identified in either karyn ast to suggest malignancy. There has been no suspicious interval change. IMPRESSION: 1. No mammographic evidence of malignancy. 2. Recommend routine screening mammography in one year. BI-RADS Category 1: Negative Reviewed, dictated and finalized at location A.
== END ==
PROVIDERS: PCP Registered Nurse; Visit Provider Registered Nurse
DX: Z12.31 Encounter for screening mammogram for malignant neoplasm of breast (principal)
CPT/HCPCS: 77063; 77067

== ENCOUNTER 2023-10-21 13:51 | Outpatient (CLI) | payer BC, SELFPAY ==
--- NOTE | ~2023-10-21 | XR_ITS ---
EXAMINATION: [id number] DATE: 10/21/2023 14:12 INDICATION: Left knee pain. TECHNIQUE: 2 views of left knee standing were obtained. COMPARISON: None. FINDINGS: There is varus angulation at the knee. No fracture. There is severe osteoarthritis of media l compartment, mild osteoarthritis of lateral compartment, and moderate osteoarthritis of patellofemo ral compartment. No knee joint effusion. IMPRESSION: 1. Severe left knee osteoarthritis. Reviewed, dictated and finalized at location A.
== END 2023-10-21 13:52 ==
LOC: MICIMG 13:53
PROVIDERS: PCP Nurse Practitioner Family; Visit Provider Nurse Practitioner Family
DX: M17.12 Unilateral primary osteoarthritis, left knee (principal)
CPT/HCPCS: 73560

== ENCOUNTER 2024-01-24 12:44 | Outpatient (CLI) | payer OTHER, SELFPAY ==
--- NOTE | ~2024-01-24 | US_ITS ---
EXAMINATION: US thyroid DATE: 01/24/2024 13:14 INDICATION: Disorder of thyroid, unspecified. TECHNIQUE: Multiple ultrasound images of the thyroid were obtained. COMPARISON: Ultrasound 01/22/2023 FINDINGS: The right thyroid lobe measures 4.9 x 1.7 x 1.7 cm. The left thyroid lobe measures 4.3 x 1.6 x 1.5 c m. In the left thyroid lobe, there is a 1.2 cm solid, hypoechoic, wider than tall nodule with smooth margin without echogenic foci (TI-RADS TR4), stable from 01/22/2023. In the right thyroid lobe, there is a 1.2 cm solid, hypoechoic, wider than tall nodule with ill-defined margin without echogenic foci (TR4). IMPRESSION: 1. Thyroid nodules. Thyroid ultrasound is recommended in one year. Reviewed, dictated and finalized at location E.
== END 2024-01-24 12:45 ==
LOC: MICIMG 12:47
PROVIDERS: PCP Internal Medicine; Visit Provider Registered Nurse
DX: E04.2 Nontoxic multinodular goiter (principal)
CPT/HCPCS: 76536

== ENCOUNTER 2024-04-03 12:47 | Outpatient (CLI) | payer OTHER, SELFPAY ==
--- NOTE | ~2024-04-03 | MM_ITS ---
EXAMINATION: MM screening [facility] BI w [place] HISTORY: Screening TECHNIQUE: Craniocaudal and mediolateral oblique 3-D tomosynthesis images were obtained and synthetic 2-D images were generated. CAD analysis was submitted and interpreted. COMPARISON: Comparison to multiple prior studies sequentially, with oldest reviewed study dated 08/2016. BREAST PARENCHYMAL COMPOSITION: Not dense: There are scattered areas of fibroglandular density. FINDINGS: There is no evidence of suspicious mass, calcification, or architectural distortion to sugg est malignancy in either breast. There has been no suspicious interval change. IMPRESSION: 1. No mammographic evidence of malignancy. 2. Recommend routine screening mammography in one year. BI-RADS Category 1: Negative Reviewed, dictated and finalized at location B.
== END 2024-04-03 12:48 ==
LOC: MICIMG 12:48
PROVIDERS: PCP Family Medicine; Visit Provider Obstetrics & Gynecology
DX: Z12.31 Encounter for screening mammogram for malignant neoplasm of breast (principal)
CPT/HCPCS: 77063; 77067

== ENCOUNTER 2025-03-08 10:46 | Outpatient (CLI) | payer OTHER, SELFPAY ==
--- OUTSIDE RECORDS SUMMARY | 2025-03-08 10:50 | XMS_ITS | Clinical Summary ---
Author Organization [facility] Address [address] [place] [address] Care Team Providers Care Dehairing Machine Tender Name Role Phone Danny Wynn DO Primary Care Provider [phone] Source Comments [facility],non-owned Affiliates and Associated Physician Practices is amultiple site organization consisting of ambulatory clinics and hospital sitesin [place], [place], [place] and [place]. This disclosure is being madepursuant to the Care Everywhere program and may not contain all information available regarding this patient. Last updated 18.[facility] Allergies No known active allergies Medications * Be aware that medications may not be up to date on this document. Alwaysverify current medications with the patient. losartan-hydroC HLOROthiazide (HYZAAR) 100-12.5 MG tablet Take 1 tablet by mouth once daily Active atorvastatin (LIPITOR) 10 MG tablet Take 10 mg by mouth at bedtime Active pantoprazole (PROTONIX) 40 MG packet Take 40 mg by mouth once daily Active escitalopram (LEXAPRO) 20 MG tablet Take 20 mg by mouth once daily Active cetirizine (ZYRTEC ALLERGY) 10 MG tablet Take 10 mg by mouth once daily Active busPIRone (BUSPAR) 5 MG tablet Take 5 mg by mouth 3 times daily Active albuterol HFA (PROAIR HFA) 108 (90 Base) MCG/ACT inhaler Inhale 2 puffs by mouth every 6 hours as needed Active azelastine (Astepro) 205.5 MCG/SPRAY nasal spray USE 1 TO 2 SPRAYS IN EACH NOSTRIL TWICE DAILY 02/13/2022 Active Qvar RediHaler 40 MCG/ACT inhaler Inhale 1 (one) puff by mouth 2 times daily 03/13/2022 Active cyclobenzaprine (Flexeril) 10 MG tablet Take 1 (one) tablet by mouth 3 times daily as needed 03/18/2022 Active HYDROcodone-gutierrez taminophen (Merrill) 5-325 MG tablet Take 1 (one) tablet by mouth 3 times daily as needed 06/28/2022 Active Xiidra 5 % opthalmic solution 12/19/2020 Active propranolol CR 24hr (Inderal LA) 80 MG capsule Take 1 (one) capsule by mouth once daily 06/30/2022 Active Active Problems Problem Noted Date Diagnosed Date Neck pain 07/09/2022 Social History Tobacco Use Types Packs/Day Years Used Date Smoking Tobacco: Never Smokeless Tobacco: Never Tobacco Cessation:Counseling Given: Not Answered Alcohol Use Standard Drinks/Week Comments Yes 0 (1 standard drink = 0.6 oz pur e alcohol) Comments No Sex and Gender Information Value Date Recorded Sex Assigned at Not on file Legal Sex Female 12:56 PM FITNESS AND WELLNESS COORDINATOR Gender Identity Not on file Sexual Orientation Not on file Last Filed Vital Signs Vital Sign Reading Time Taken Comments Blood Pressure 130/78 07/09/2022 9:56 AM FITNESS AND WELLNESS COORDINATOR Pulse 77 07/09/2022 9:56 AM FITNESS AND WELLNESS COORDINATOR Temperature 36.5 C (97.7 F) 07/09/2022 9:56 AM FITNESS AND WELLNESS COORDINATOR Respiratory Rate 16 07/09/2022 9:56 AM FITNESS AND WELLNESS COORDINATOR Oxygen Saturation 97% 07/09/2022 9:56 AM FITNESS AND WELLNESS COORDINATOR Inhaled Oxygen Concentration - - Weight 119.9 kg (264 lb 6.4 oz) 07/09/2022 9:56 AM FITNESS AND WELLNESS COORDINATOR Height 157.5 cm (5' 2) 07/09/2022 9:56 AM FITNESS AND WELLNESS COORDINATOR Body Mass Index 48.36 07/09/2022 9:56 AM FITNESS AND WELLNESS COORDINATOR Plan of Treatment Health Maintenance Due Date Last Done Comments COLOGUARD (AGES 45-75) - COL ON CA SCREENING 1962 COLON MONITORING 1962 COLONOSCOPY - COLON CA SCREENING 1962 CT COLONOGRAPHY - COLON CA SCREENING 1962 Colorectal Cancer Screening 1962 FIT - COLON CA SCREENING 1962 FLEX SIG - COLON CA SCREENING 1962 MAMMOGRAM 1962 HIV SCREENING 1977 HEPATITIS C SCREENING 02/04/1980 DTAP/TDAP/TD VACCINES (1 - Tdap) 1981 PAP SMEAR 1983 PNEUMOCOCCAL VACCINE 50+ (1 of 1 - PCV) 02/09/2012 ZOSTER VACCINE (1 of 2) 02/09/2012 Respiratory Syncytial Virus (RSV) Vaccine Pt: or over 60 yrs (1 - Risk 60-74 years 1-dose series) 2022 SCREENING FOR DIABETES 07/09/2022 COVID-19 VACCINE (1 - 2023-2 5 season) 2024 DEPRESSION SCREENING 08/09/2024 INFLUENZA VACCINE (#1) 2025 HEPATITIS B VACCINE Aged Out No longe r eligible based on patient's age to complete this topic HIB VACCINE Aged Out No longer eligi ble based on patient's age to complete this topic HPV VACCINE Aged Out No longer eligi ble based on patient's age to complete this topic MENINGOCOCCAL (Group B) VACC INE SHARED DECISION-MAKING Aged Out No longer eligibl e based on patient's age to complete this topic MENINGOCOCCAL GROUPS A/C/Y/W VACCINE Aged Out No longer eligible b ased on patient's age to complete this topic Insurance [employer] Care Teams Dehairing Machine Tender Relationship Specialty Start Date End Date Danny Wynn DO [address] [place] [address] PCP - General 07/26/18
--- OUTSIDE RECORDS SUMMARY | 2025-03-08 10:50 | XMS_ITS | Clinical Summary ---
Author Organization [facility] Address [address] [facility] [address] [place] [address] Phone Care Team Providers Care Vineyard Supervisor Name Role Phone Danny Wynn DO Primary Care Provider [phone] Allergies Active Allergy Reactions Criticality Noted Date Comments Other-Food Allergen (Not Found In Search) Other (see Comments) 10/05/2019 Patient states she is unsure of the medication, but a female medication caused her mouth to break out in hives Social History Tobacco Use Types Packs/Day Years Used Date Smoking Tobacco: Never Assessed Comments Unknown Sex and Gender Information Value Date Recorded Sex Assigned at Not on file Legal Sex Female 7:37 PM CDT Gender Identity Not on file Sexual Orientation Not on file Plan of Treatment Health Maintenance Due Date Last Done Comments Hepatitis C Virus (HCV) Screening 1962 TdaP Immunization 1962 Pap Smear 1983 Cervical Cancer Screening (CCS) 02/09/1992 HPV/Cotest 02/09/1992 Cologuard 2007 Immunochemical Fecal Occult Blood 2007 Pneumococcal Immunization (5 0+ years) (1 of 1 - PCV) 02/09/2012 Zoster Immunization (1 of 2) 02/09/2012 SARS-COV-2 Immunization (1 - 2023- season) 2024 Colonoscopy 09/21/2024 09/21/2019 Colorectal Cancer Screening 09/21/2024 Influenza Immunization (#1) 2025 Respiratory Syncytial Virus (RSV) Immunization (Adult) (1 - 1-dose 75+ series) 2037 Hepatitis B Immunization Aged Out No longer eligible based on patient's age to complete this topic Human Papillomavirus (HPV) Immunization Aged Out No longer eligible b ased on patient's age to complete this topic Meningococcal Immunization (ACWY) Aged Out No longer eligible based on patient's age to complete this topic Rotavirus Immunization Aged Out No lo nger eligible based on patient's age to complete this topic Procedures Procedure Name Priority Date/Time Associated Diagnosis Comments HM COLONOSCOPY Routine 09/21/2019 from Last 3 Months or Most Recently Relevant to Health Maintenance Results * HM COLONOSCOPY (09/21/2019) Juwan Durán DO PROCEDURE/MINOR SURGICAL ORDERA BLES Final Result from Last 3 Months or Most Recently Relevant to Health Maintenance Insurance Care Teams Vineyard Supervisor Relationship Specialty Start Date End Date Danny Wynn DO [address] [place] [address] PCP - General Internal Medicine 09/29/19
--- OUTSIDE RECORDS SUMMARY | 2025-03-08 10:50 | XMS_ITS | Patient Health Record ---
Author Organization [facility] Address [address] [place] [address] Care Team Providers Care Latex Fashions Designer Name Role Phone Danny Wynn DO Primary Care Provider Mirna Vargas Unavailable [phone] Uyen Hickey Unavailable [phone] Allergies Allergen (clinical drug ingredient) Drug/Non Drug Allergy documented on EMR Reaction Allergy Type Onset Date Status fezolinetant Veozkaylin hives Drug Allergy Acti ve Reason For Referral No Information Medications Medication SIG (Take, Route, Frequency, Duration) Notes Start Date End Date Status Pantoprazole Sodium 40 MG TAKE 1 TABLET BY MOUTH ONCE DAILY Oral; Duration: 90 Days Active Cyclobenzaprine HCl 5 MG TAKE 1 TABLET B Y MOUTH THREE TIMES A DAY NEEDED FOR MUSCLE SPASMS Oral; Duration: 30 Days Active ALPRAZolam 0.5 MG Oral 12/17/2023 A ctive HYDROcodone-Acetaminophen 5-325 MG TAKE 1 TABLET BY MOUTH THREE TIMES DAILY NEEDED Oral; Duration: 30 Days Active Advair Diskus 250-50 MCG/ACT INHALE 1 PU FF TWICE A DAY Inhalation; Duration: 30 Days Active Dicyclomine HCl 20 MG 20 MG ORALLY THREE TIMES A DAY Oral; Duration: 90 Days Active busPIRone HCl 10 MG TAKE 2 TABLETS EVERY DAY BY ORAL ROUTE IN THE MORNING FOR 90 DAYS. Oral; Duration: 90 Days Active Atorvastatin Calcium 10 MG 10 MG ORALLY DAILY TAKE 1 TABLET BY MOUTH DAILY Oral; Duration: 90 Days Active Losartan Potassium-HCTZ 100-12.5 MG TAKE 1 TABLET BY MOUTH EVERY DAY Oral; Duration: 90 Days Active Propranolol HCl ER 80 MG 80 MG ORALLY DA TANIKA Oral; Duration: 90 Days Active Montelukast Sodium 10 MG TAKE 1 TABLET B Y MOUTH EVERY DAY Oral; Duration: 90 Days Active Pantoprazole Sodium 40 MG TAKE 1 TABLET BY MOUTH ONCE DAILY Oral; Duration: 90 Days Active Escitalopram Oxalate 20 MG TAKE 1 TABLET BY MOUTH EVERY DAY FOR 90 DAYS; Duration: 90 Active Immunizations Vaccine Route Administration Date Status Comme nts Pfizer [employer] Covid-19 Vac cine 2nd dose Unknown 12/19/2020 Administered Pfizer [employer] Covid-19 Vac cine 2nd dose Unknown 01/10/2021 Administered Pfizer [employer] Covid-19 Vac cine 2nd dose Unknown 08/05/2021 Administered Social History Sex Assigned At : Social History Observation Description Sex Assigned At Female Problems Problem Type SNOMED Code ICD Code Onset Dates Problem Status W/U Status Risk Notes Problem Mild recurrent major depression (93015918) Major depressive disorder, recurrent, mild (F33.0) 4 Active confirmed Problem Moderate recurrent major depression (69965224) Major depressive disorder, recurrent, moderate (F33.1) Active confirmed Problem Generalized anxiety disorder (93871084) Generalized anxiety disorder (F41.1) 4 Active confirmed Problem Post-traumatic stress disorder (75494690) Post-traumatic stress disorder, unspecified (F43.10) 4 Active confirmed Problem Long-term current use of drug therapy (860223538) Other penitentiary (current) drug therapy (Z79.899) 4 Active confirmed Problem Obsessive-compul sive disorder (782026005) Obsessive-compu lsive disorder, unspecified (F42.9) 4 Active confirmed Vital Signs Height-cm 158.75 cm 03/16/2024 Weight-kg 112.76 kg 03/16/2024 Height 62.50 in 03/16/2024 Weight 248.6 lbs 03/16/2024 BMI 44.74 kg/m2 03/16/2024 Encounters Encounter Location Date Provider Diagnosis [facility] [address] [address] [address] [facility] [address] [place] [address] 03/16/2024 Mirna Swann Major depressive disorder, recurrent, mild F33.0 ; Generalized anxiety disorder F41.1 ; Other penitentiary (current) drug therapy Z79.899 ; Obsessive-compulsive disorder, unspecified F42.9 and Post-traumatic stress disorder, unspecified F43.10 [facility] [email or web address] [address] [place] [address] 03/29/2024 Uyen Hickey Post-traumatic stres s disorder, unspecified F43.10 ; Generalized anxiety disorder F41.1 ; Obsessive-compulsive disorder, unspecified F42.9 and Major depressive disorder, recurrent, moderate F33.1 [facility] [employer] [facility] [address] [place] [address] 06/13/2024 Mirna Yuepepe [facility] [employer] [facility] [address] [place] [address] 06/14/2024 Mirna Navidogpepe [facility] [employer] [facility] [address] [place] [address] 06/14/2024 Uyen Hickey Assessments Encounter Date Diagnosis (ICD Code) Assessment Notes Treatment Notes Treatment Clinical Notes Section Notes 03/16/2024 Major depressive disorder, recurrent, mild (ICD-10 - F33.0) Preventing Depression From Coming Back: Care Instructions material was published, Learning About Depression material was published, Learning About Depression Screening material was published 1. Mild recurrent major depression -Lexapro 20 mg daily- no refill needed today educated on all medications, benefits, side effects and risk, and educated on depression, anxiety, and , mood d/o and educated on compliance of medications, appointment's, continue therapy discussion with patient about course of treatment and patient instructions. SSRI/SNRI side effects discussed including but not limited to, gastric upset, nausea, vomiting, diarrhea and/or constipation, weight changes, sexual side effects including loss of libido, increased suicidal thoughts/behavio rs in children and young adults, and serotonin syndrome. schedule labs and PCP US thyroid scheduled seen AUTO TRANSMISSION SPECIALIST 12/16/22 Prescription Monitoring Report reviewed 2. Generalized anxiety disorder - Buspar to Take 2 tabs Buspar 10 mg a day in am- no refill needed today hx letter for pain management stopping Ativan and no benzo prescribed by DANITZA related going to pain management for pain control Medication Management and Follow-Up- Plan:- Schedule follow-up appointments every 2-3 months to monitor the patient's response to the medication regimen.- Reinforce the importance of avoiding recreational drug use due to potential neurotoxicity and interactions with prescribed medications. 3. Insomnia disorder related to another mental disorder -PCP sleep study CBT therapy for sleep 4. Complex posttraumatic stress disorder -therapy 5. Obsessive-compul sive disorder -therapy continue 6. Long-term drug therapy Discussion Notes continue therapy 03/16/2024 Generalized anxiety disorder (ICD-10 - F41.1) Learning About Generalized Anxiety Disorder material was published, Generalized Anxiety Disorder: Care Instructions material was published, Learning About Anxiety Disorders material was published 1. Mild recurrent major depression -Lexapro 20 mg daily- no refill needed today educated on all medications, benefits, side effects and risk, and educated on depression, anxiety, and , mood d/o and educated on compliance of medications, appointment's, continue therapy discussion with patient about course of treatment and patient instructions. SSRI/SNRI side effects discussed including but not limited to, gastric upset, nausea, vomiting, diarrhea and/or constipation, weight changes, sexual side effects including loss of libido, increased suicidal thoughts/behavio rs in children and young adults, and serotonin syndrome. schedule labs and PCP US thyroid scheduled seen AUTO TRANSMISSION SPECIALIST 12/16/22 Prescription Monitoring Report reviewed 2. Generalized anxiety disorder - Buspar to Take 2 tabs Buspar 10 mg a day in am- no refill needed today hx letter for pain management stopping Ativan and no benzo prescribed by DANITZA related going to pain management for pain control Medication Management and Follow-Up- Plan:- Schedule follow-up appointments every 2-3 months to monitor the patient's response to the medication regimen.- Reinforce the importance of avoiding recreational drug use due to potential neurotoxicity and interactions with prescribed medications. 3. Insomnia disorder related to another mental disorder -PCP sleep study CBT therapy for sleep 4. Complex posttraumatic stress disorder -therapy 5. Obsessive-compul sive disorder -therapy continue 6. Long-term drug therapy Discussion Notes continue therapy 03/29/2024 Generalized anxiety disorder (ICD-10 - F41.1) 03/29/2024 Post-traumatic stress disorder, unspecified (ICD-10 - F43.10) 03/29/2024 Obsessive-compu lsive disorder, unspecified (ICD-10 - F42.9) 03/16/2024 Other terminal carman (current) drug therapy (ICD-10 - Z79.899) Medication Refill: Care Instructions material was published 1. Mild recurrent major depression -Lexapro 20 mg daily- no refill needed today educated on all medications, benefits, side effects and risk, and educated on depression, anxiety, and , mood d/o and educated on compliance of medications, appointment's, continue therapy discussion with patient about course of treatment and patient instructions. SSRI/SNRI side effects discussed including but not limited to, gastric upset, nausea, vomiting, diarrhea and/or constipation, weight changes, sexual side effects including loss of libido, increased suicidal thoughts/behavio rs in children and young adults, and serotonin syndrome. schedule labs and PCP US thyroid scheduled seen AUTO TRANSMISSION SPECIALIST 12/16/22 Prescription Monitoring Report reviewed 2. Generalized anxiety disorder - Buspar to Take 2 tabs Buspar 10 mg a day in am- no refill needed today hx letter for pain management stopping Ativan and no benzo prescribed by DANITZA related going to pain management for pain control Medication Management and Follow-Up- Plan:- Schedule follow-up appointments every 2-3 months to monitor the patient's response to the medication regimen.- Reinforce the importance of avoiding recreational drug use due to potential neurotoxicity and interactions with prescribed medications. 3. Insomnia disorder related to another mental disorder -PCP sleep study CBT therapy for sleep 4. Complex posttraumatic stress disorder -therapy 5. Obsessive-compul sive disorder -therapy continue 6. Long-term drug therapy Discussion Notes continue therapy 03/16/2024 Obsessive-compu lsive disorder, unspecified (ICD-10 - F42.9) Obsessive-Compu lsive Disorder: Care Instructions material was published 1. Mild recurrent major depression -Lexapro 20 mg daily- no refill needed today educated on all medications, benefits, side effects and risk, and educated on depression, anxiety, and , mood d/o and educated on compliance of medications, appointment's, continue therapy discussion with patient about course of treatment and patient instructions. SSRI/SNRI side effects discussed including but not limited to, gastric upset, nausea, vomiting, diarrhea and/or constipation, weight changes, sexual side effects including loss of libido, increased suicidal thoughts/behavio rs in children and young adults, and serotonin syndrome. schedule labs and PCP US thyroid scheduled seen AUTO TRANSMISSION SPECIALIST 12/16/22 Prescription Monitoring Report reviewed 2. Generalized anxiety disorder - Buspar to Take 2 tabs Buspar 10 mg a day in am- no refill needed today hx letter for pain management stopping Ativan and no benzo prescribed by DANITZA related going to pain management for pain control Medication Management and Follow-Up- Plan:- Schedule follow-up appointments every 2-3 months to monitor the patient's response to the medication regimen.- Reinforce the importance of avoiding recreational drug use due to potential neurotoxicity and interactions with prescribed medications. 3. Insomnia disorder related to another mental disorder -PCP sleep study CBT therapy for sleep 4. Complex posttraumatic stress disorder -therapy 5. Obsessive-compul sive disorder -therapy continue 6. Long-term drug therapy Discussion Notes continue therapy 03/29/2024 Major depressive disorder, recurrent, moderate (ICD-10 - F33.1) 03/16/2024 Post-traumatic stress disorder, unspecified (ICD-10 - F43.10) Post-Traumatic Stress Disorder (PTSD): Care Instructions material was published 1. Mild recurrent major depression -Lexapro 20 mg daily- no refill needed today educated on all medications, benefits, side effects and risk, and educated on depression, anxiety, and , mood d/o and educated on compliance of medications, appointment's, continue therapy discussion with patient about course of treatment and patient instructions. SSRI/SNRI side effects discussed including but not limited to, gastric upset, nausea, vomiting, diarrhea and/or constipation, weight changes, sexual side effects including loss of libido, increased suicidal thoughts/behavio rs in children and young adults, and serotonin syndrome. schedule labs and PCP US thyroid scheduled seen AUTO TRANSMISSION SPECIALIST 12/16/22 Prescription Monitoring Report reviewed 2. Generalized anxiety disorder - Buspar to Take 2 tabs Buspar 10 mg a day in am- no refill needed today hx letter for pain management stopping Ativan and no benzo prescribed by DANITZA related going to pain management for pain control Medication Management and Follow-Up- Plan:- Schedule follow-up appointments every 2-3 months to monitor the patient's response to the medication regimen.- Reinforce the importance of avoiding recreational drug use due to potential neurotoxicity and interactions with prescribed medications. 3. Insomnia disorder related to another mental disorder -PCP sleep study CBT therapy for sleep 4. Complex posttraumatic stress disorder -therapy 5. Obsessive-compul sive disorder -therapy continue 6. Long-term drug therapy Discussion Notes continue therapy Plan Of Treatment No Information Insurance Providers Payer Name Payer Address Payer Phone Subscriber Number Group Number Insured Name Patient Relationship to Insured Coverage Start Date Coverage End Date [facility] [address] [place] [phone] [id number] [employer] Self - patient is the insured Medical (General) History Medical History History ICD Code Problems: Complex posttraumatic stress d isorder Generalized anxiety disorder History of SARS-CoV-2 Insomnia disorder related to another men dominga disorder Long-term drug therapy Mild recurrent major depression Moderate recurrent major depression Obsessive-compulsive disorder Sjgren's syndrome , Surgical History Surgery Date(Month/Year) Hysterectomy/revise vagina (62007)
--- OUTSIDE RECORDS SUMMARY | 2025-03-08 10:51 | XMS_ITS | Clinical Summary ---
Author Organization [facility] [place] [address] Address [address] [place] [id number] Care Team Providers Care Supervisor Filling And Packing Name Role Phone Radha Carrillo NP Primary Care Provider [phone] Allergies Active Allergy Reactions Criticality Noted Date Comments Amoxicillin-Pot Clavulanate Other (See comments) 10/25/2024 Stomach upset Celecoxib Hives Medium 11/27/2024 Doxycycline Hives Medium 10/30/2024 Fezolinetant Hives Medium 03/21/2024 Propantheline Hives Medium 02/16/2025 Terconazole Blisters High 02/16/2025 Mouth blisters Medications azelastine 205.5 mcg (0.15 %) spray,non-aerosol USE 1 TO 2 SPRAYS IN EACH NOSTRIL TWICE DAILY 022 Active cetirizine (ZyrTEC) 10 mg tablet Take 1 tablet (10 mg total) by mouth daily Active dicyclomine (BENTYL) 20 mg tablet Take 1 tablet (20 mg total) by mouth 3 (three) times a day as needed Active fluticasone propion-salmetero L (Advair Diskus) 250-50 mcg/dose diskus inhaler Inhale 1 puff daily as needed Active HYDROcodone-aceta minophen (NORCO) 5-325 mg per tablet TAKE 1 TABLET BY MOUTH THREE TIMES DAILY NEEDED Oral for 30 Days 022 Active Lactobacillus acidophilus (Probiotic) 10 billion cell capsule Active senna (SENOKOT) 8.6 mg tablet Take 1 tablet by mouth daily as needed for constipation Active nystatin powder External Active naloxone (NARCAN) 4 mg/actuation spray,non-aerosol Nasal Active albuterol HFA (PROVENTIL HFA,VENTOLIN HFA,PROAIR HFA) 90 mcg/actuation inhalerIndication s:Mild intermittent asthma without complication Inhale 2 puffs every 6 (six) hours as needed for wheezing or shortness of breath 3 each 1 Active losartan-hydroCHL OROthiazide (HYZAAR) 100-12.5 mg per tablet TAKE 1 TABLET BY MOUTH EVERY DAY 90 tablet Active propranolol LA (INDERAL LA) 80 mg 24 hr capsule 80 MG ORALLY DAILY 90 capsule 3 Active Additional Information Patient taking differently: 80 mg oral Daily, Reported on 02/28/2025 atorvastatin (LIPITOR) 10 mg tablet 10 MG ORALLY DAILY TAKE 1 TABLET BY MOUTH DAILY 90 tablet 3 Active escitalopram (LEXAPRO) 20 mg tabletIndications :Major depressive disorder, recurrent, mild TAKE 1 TABLET BY MOUTH EVERY DAY 90 tablet 3 025 Active busPIRone (BUSPAR) 15 mg tabletIndications :ABA (generalized anxiety disorder) Take 2 tablets (30 mg total) by mouth 2 (two) times a day 120 tablet 3 Active Additional Information Patient taking differently: 15 mgoral 2 times daily, Reported on 02/28/2025 methocarbamoL (ROBAXIN) 500 mg tabletIndications :Chronic bilateral low back pain without sciatica,Chronic neck pain TAKE 1 TABLET (500 MG TOTAL) BY MOUTH 2 (TWO) TIMES A DAY NEEDED FOR MUSCLE SPASMS 60 tablet [address] (PROTONIX) 40 mg EC tablet Take 1 tablet (40 mg total) by mouth daily 90 tablet 1 Active montelukast (SINGULAIR) 10 mg tablet TAKE 1 TABLET BY MOUTH EVERY DAY 90 tablet 1 Active naproxen (NAPROSYN) 500 mg tabletIndications :Primary osteoarthritis of both knees Take 1 tablet (500 mg total) by mouth 2 (two) times a day with meals 60 tablet 1 025 2024 Active ipratropium (ATROVENT) 21 mcg (0.03 %) nasal spray Active desonide (DESOWEN) 0.05 % ointment Active oxyCODONE (ROXICODONE) 5 mg immediate release tabletIndications :Pain Take 1 tablet (5 mg total) by mouth every 4 (four) hours as needed for pain [address] (PROTONIX) 40 mg EC tablet Take 1 tablet (40 mg total) by mouth daily 024 2024 Discontinued(R eorder) montelukast (SINGULAIR) 10 mg tablet TAKE 1 TABLET BY MOUTH EVERY DAY 90 tablet 025 2024 Discontinued cyclobenzaprine (FLEXERIL) 5 mg tablet TAKE 1 TABLET BY MOUTH THREE TIMES A DAY NEEDED FOR MUSCLE SPASMS Oral; Duration: 30 Days 2024 Discontinued(A lternate therapy) Hospital, Clinic, or Other Facility Administered Medication Ordered Dose Route Frequency Start Date End Date Status lidocaine (XYLOCAINE) 10 mg/mL (1 %) injection 2 mLIndications:Admini stration of Local Anesthesia 2 mL One-Time Injection 02/16/2025 5 Ended methylPREDNISolone acetate (DEPO-medrol) injection 40 mgIndications:Primar y osteoarthritis of both knees,Right knee pain, unspecified chronicity 40 mg intra-artic One-Time Injection 02/16/2025 5 Ended Active Problems Problem Noted Date Diagnosed Date Mass of right finger 02/16/2025 Osteophyte of right hand 02/16/2025 Primary osteoarthritis of both knees 01/30/2025 Left knee pain 12/28/2024 Assessment & Plan (12/28/2024 3:36 PM CDT): Acute on chronic left knee pain, worsening Started on Medrol Dosepak Encouraged to continuing icing and to wear brace if perceives benefit Discussed referral to orthopedic surgeon when interested Acute non-recurrent pansinusitis 10/18/2024 Assessment & Plan (10/18/2024 9:38 AM CDT): Started on antibiotic Supportive care measures discussed Strict return precautions given Myxoid cyst 09/21/2024 Assessment & Plan (09/21/2024 3:26 PM AGRICULTURE CONSULTANT): Referral made to orthopedic hand specialist Insomnia 09/21/2024 Assessment & Plan (09/21/2024 3:28 PM AGRICULTURE CONSULTANT): Uncontrolled Started on hydroxyzine as directed as needed Need for vaccination 05/24/2024 Assessment & Plan (05/24/2024 5:50 AM CDT): Discussed screening/vaccination in depth and patient understands all risk and benefits associated with proposed therapies and currently declines, has been encouraged to call if changes mind. Annual physical exam 05/24/2024 Assessment & Plan (05/24/2024 5:51 AM CDT): Reviewed past and current medical history, surgical history, social history, family history, current medications, and allergies. The chart was updated to identify any changes in these areas. A ROS and PE were performed. Medications were ordered and labs were reviewed. Discussed screening colonoscopy, well woman exam/cervical cancer screening, screening mammogram, monthly breast self-exams, bone density testing, and recommended immunizations. Patient will follow-up in 6 months for further evaluation and management or sooner if needed. Irritable bowel syndrome wit h both constipation and diarrhea 05/24/2024 Assessment & Plan (05/24/2024 5:54 AM CDT): Chronic, stable, controlled with medication Continued on dicyclomine as directed as needed Hypertension, essential 05/24/2024 Assessment & Plan (12/07/2024 2:49 PM CDT): Controlled Continued on losartan-hydrochlorothiazide Assessment & Plan (10/18/2024 9:38 AM CDT): Controlled Continued on losartan-hydrochlorothiazide Assessment & Plan (09/21/2024 3:26 PM AGRICULTURE CONSULTANT): Uncontrolled Continued on losartan-hydrochlorothiazide Recommended 2 gram low sodium diet and weight loss for better control of hypertension Assessment & Plan (05/24/2024 5:54 AM CDT): Chronic, stable, controlled with medication Continued on losartan-hydrochlorothiazide Mild intermittent asthma without complication Assessment & Plan (10/18/2024 9:38 AM CDT): Controlled Continued on Singulair daily, Advair and albuterol PRN Assessment & Plan (05/24/2024 5:59 AM CDT): Chronic, stable, controlled with medication Continued on Singulair daily, Advair and albuterol PRN Not immune to hepatitis B virus 05/22/2024 Assessment & Plan (05/24/2024 5:49 AM CDT): Offered hepatitis-B series, not interested at this time Hyperlipidemia, unspecified 05/22/2024 Assessment & Plan (05/24/2024 5:49 AM CDT): Chronicity, stability unknown, uncontrolled with elevated LDL Recommended low-fat low-cholesterol diet high in fiber Continued on atorvastatin Will monitor for safety Prediabetes 05/22/2024 Assessment & Plan (10/18/2024 9:38 AM CDT): Recommended diet low in concentrated sweets, such as desserts, juice, soda, and sweet tea, and limiting starchy foods, such as white potatoes, rice, pasta, and corn Referral made to endocrinology per patient Assessment & Plan (05/23/2024 2:48 PM CDT): Chronicity and stability unknown recommend diet low in concentrated sweets, such as desserts, juice, soda, and sweet tea, and limiting starchy foods, such as white potatoes, rice, pasta, and corn Will monitor for stability ABA (generalized anxiety disorder) 03/24/2024 Assessment & Plan (12/28/2024 3:33 PM CDT): Uncontrolled, worsening Increased dose of buspirone from 20 mg BID to 30 mg BID Continued on Lexapro 20 mg daily Assessment & Plan (12/07/2024 2:49 PM CDT): Uncontrolled Increased buspirone from 10 mg 2 tablets daily to 20 mg in the morning and 10 mg in the evening, then gave option of increasing to 20 mg BID Continued on Lexapro 20 mg daily Encouraged to reestablish with therapist Assessment & Plan (11/22/2024 1:51 PM CDT): Uncontrolled Increased buspirone from 10 mg 2 tablets daily to 20 mg in the morning and 10 mg in the evening, then gave option of increasing to 20 mg BID Continued on Lexapro 20 mg daily Encouraged to reestablish with therapist Assessment & Plan (10/18/2024 9:37 AM CDT): Uncontrolled Continued on Lexapro and propranolol, states she stopped buspirone before starting hydroxyzine, however did not tolerate hydroxyzine, states made her anxiety worse and caused insomnia Restarted hydroxyzine 5 mg twice daily times 3-4 days, then increasing to 10 mg twice daily, gave option of increasing to 15 mg twice daily after 3-4 days Assessment & Plan (09/21/2024 3:25 PM AGRICULTURE CONSULTANT): Uncontrolled Continued on Lexapro, buspirone, and propranolol Started on hydroxyzine PRN Assessment & Plan (05/24/2024 5:55 AM CDT): Chronic, stability unknown Reviewed ABA-7=10, uncontrolled, currently under the are of psychiatry Continued on Lexapro, buspirone, and propranolol Assessment & Plan (03/24/2024 6:59 AM CDT): Chronicity and stability unknown Reviewed ABA-7=5 Continued on Lexapro, buspirone, and propranolol Encouraged to follow-up with therapist as recommended Depression, major, recurrent, moderate Assessment & Plan (12/07/2024 2:49 PM CDT): Controlled Continued on Lexapro 20 mg daily Encouraged to reestablish with therapist Advised if suicidal ideation or thoughts of harming self or others, to go to ER and/or call [phone] for assistance, agreed to contract for safety. Assessment & Plan (11/22/2024 1:51 PM CDT): Controlled Continued on Lexapro 20 mg daily Encouraged to reestablish with therapist Advised if suicidal ideation or thoughts of harming self or others, to go to ER and/or call [phone] for assistance, agreed to contract for safety. Assessment & Plan (10/18/2024 9:37 AM CDT): Controlled Continued on Lexapro 20 mg Advised if suicidal ideation or thoughts of harming self or others, to go to ER and/or call [phone] for assistance, agreed to contract for safety. Assessment & Plan (05/23/2024 2:33 PM CDT): Chronic, stable controlled on medication Reviewed PHQ-9=3 Advised if suicidal ideation or thoughts of harming self or others, to go to ER and/or call [phone] for assistance, agreed to contract for safety. Assessment & Plan (03/24/2024 7:00 AM CDT): Chronicity and stability unknown Reviewed PHQ-9=3 Continued on LexaproEncouraged to follow-up with therapist as recommended OCD (obsessive compulsive disorder) 03/24/2024 Assessment & Plan (05/23/2024 2:34 PM CDT): Chronic, stability unknown Continued on Lexapro and buspirone Assessment & Plan (03/24/2024 7:00 AM CDT): Chronicity and stability unknown Reviewed PHQ-9=3. ABA-7=5 Continued on Lexapro, buspirone, and propranolol Encouraged to follow-up with therapist as recommended PTSD (post-traumatic stress disorder) 03/24/2024 Assessment & Plan (05/23/2024 2:35 PM CDT): Chronic, stability unknown Reviewed PHQ-9=3, ABA-7=10 Continued on Lexapro and buspirone Assessment & Plan (03/24/2024 7:00 AM CDT): Chronicity and stability unknown Reviewed PHQ-9=3. ABA-7=5 Continued on Lexapro, buspirone, and propranolol Encouraged to follow-up with therapist as recommended Morbid obesity with BMI of 45.0-49.9, adult 03/09 Assessment & Plan (12/07/2024 2:48 PM CDT): Improved Encouraged to: Make healthy food choices, limiting intake of concentrated sweets, cholesterol, and saturated fat Monitor daily caloric intake and portion sizes Exercise most days of the week for a goal of at least 150 minutes of exercise per week Assessment & Plan (11/22/2024 1:47 PM CDT): Worsened Encouraged to: Make healthy food choices, limiting intake of concentrated sweets, cholesterol, and saturated fat Monitor daily caloric intake and portion sizes Exercise most days of the week for a goal of at least 150 minutes of exercise per week Assessment & Plan (10/18/2024 9:35 AM CDT): Stable Encouraged to: Make healthy food choices, limiting intake of concentrated sweets, cholesterol, and saturated fat Monitor daily caloric intake and portion sizes Exercise most days of the week for a goal of at least 150 minutes of exercise per week Assessment & Plan (09/21/2024 3:24 PM AGRICULTURE CONSULTANT): Worsened Encouraged to: Make healthy food choices, limiting intake of concentrated sweets, cholesterol, and saturated fat Monitor daily caloric intake and portion sizes Exercise most days of the week for a goal of at least 150 minutes of exercise per week Assessment & Plan (05/23/2024 2:24 PM CDT): Chronic, worsened Encouraged to: Make healthy food choices, limiting intake of concentrated sweets, cholesterol, and saturated fat Monitor daily caloric intake and portion sizes Exercise most days of the week for a goal of at least 150 minutes of exercise per week Assessment & Plan (03/24/2024 6:57 AM CDT): Chronicity and stability unknown Encouraged to: Make healthy food choices, limiting intake of concentrated sweets, cholesterol, and saturated fat Monitor daily caloric intake and portion sizes Exercise most days of the week for a goal of at least 150 minutes of exercise per week Sjogren's syndrome with keratoconjunctivitis sic ca 03/21/2024 Assessment & Plan (05/23/2024 2:25 PM CDT): Chronicity and stability unknown Encouraged to keep appointment for consultation with etiquette coach Assessment & Plan (03/24/2024 6:56 AM CDT): Chronicity and stability unknown Referral made to rheumatology Chronic bilateral low back pain without sciatica 03/21/2024 Assessment & Plan (05/23/2024 2:27 PM CDT): Chronic, stable Continued on Vicodin per pain management, OTC ibuprofen and cyclobenzaprine as directed as needed Encouraged to follow up with Pain Mgmt as recommended Chronic neck pain 03/21/2024 Assessment & Plan (05/23/2024 2:27 PM CDT): Chronic, stable, s/p injections Continued on Vicodin per pain management, OTC ibuprofen and cyclobenzaprine as directed as needed Encouraged to follow up with Pain Mgmt as recommended Gastroesophageal reflux disease without esophagi tis 03/21/2024 Assessment & Plan (05/23/2024 2:28 PM CDT): Chronic, stable, controlled with medication Continued on pantoprazole Non-seasonal allergic rhinitis 03/21/2024 Assessment & Plan (10/18/2024 9:36 AM CDT): Controlled Continued on Singulair, cetirizine, and azelastine Assessment & Plan (05/23/2024 2:28 PM CDT): Chronic, stable, controlled with medication Continued on Singulair, cetirizine, and Azelastine Right knee pain 03/21/2024 Assessment & Plan (11/22/2024 1:49 PM CDT): Uncontrolled Discontinued OTC ibuprofen Started on Celebrex 200 mg daily with food Is aware she cannot take any OTC NSAIDS while taking Celebrex Assessment & Plan (05/23/2024 2:30 PM CDT): Chronic, stable, left worse than right, gets injections in left knee every 3 months Encouraged to continue to follow up with Pain Mgmt as recommended Mild recurrent major depression 12/24/2023 Thyroid mass 02/02/2023 Overview (03/21/2024): 11 mm Assessment & Plan (11/22/2024 1:48 PM CDT): New referral made to [facility] developer [facility]/Dr. Garcia Assessment & Plan (10/18/2024 9:36 AM CDT): Referral made to endocrinology for further evaluation and management Assessment & Plan (05/23/2024 2:30 PM CDT): Chronic, stable per patient report, historically monitored by combatant diver qualified, last test summer 2023 Will refer to job developer for deaf adults, however, will be losing insurance in the next 2 weeks, wants to hold off on referral, will call when ready Asthma 03/19/2016 Overview (02/16/2025): see above Resolved Problems Problem Noted Date Diagnosed Date Resolved Date Skin exam for malignant neoplasm 03/24/2024 05/23/2024 Assessment & Plan (03/24/2024 6:58 AM CDT): Referral made to dermatology for skin check Encounter to establish care 03/21/2024 05/23/2024 Assessment & Plan (03/24/2024 6:57 AM CDT): Reviewed past and current medical history, surgical history, social history, family history, current medications, and allergies. The chart was updated to identify any changes in these areas. A ROS and PE were performed. Labs were ordered and referrals were made. Discussed screening colonoscopy, well woman exam/cervical cancer screening, screening mammogram, monthly breast self-exams, bone density testing, and recommended immunizations. Patient will follow-up in 4 weeks for annual physical exam, sooner if needed. Encounters Date Type Department Care Team Description 03/06/2025 Telephone [facility] Medical [facility] Primary [facility] at [place] [address] [facility] [address] [place] [phone] Radha Carrillo NP 02/28/2025 12:22 PM CDT Anesthesia Event [facility] [place] [address] [place] [id number] Juwan Leal MD Taylor-White, Carlotta A., NP 02/28/2025 12:20 PM CDT - 02/28/2025 1:25 PM CDT Surgery [facility] [place] [address] [place] [id number] Nohelia Garsia MD EXCISION RIGHT THUMB MUCOUS CYST AND DISTAL INTERPHALANGEAL OSTEOPHYTE 02/28/2025 9:44 AM CDT - 02/28/2025 3:45 PM CDT Hospital Encounter [facility] [place] [address] [place] [id number] Nohelia Garsia MD Mass of right finger (Primary Dx); Osteophyte of right hand Discharge Disposition: Discharge to home or self care 02/16/2025 10:30 AM CDT Office Visit [facility] Medical [facility] Hand Surgery [address] [place] [address] [address] [place] [address] Eloina Capellan PA Ganglion cyst of joint of finger of right hand (Primary Dx) 02/16/2025 9:45 AM CDT Office Visit [facility] [address] [place] [address] [address] [place] [phone] Jimbo Barker PA Primary osteoarthritis of both knees (Primary Dx); Right knee pain, unspecified chronicity; Left knee pain, unspecified chronicity 02/14/2025 2:21 PM CDT - 02/14/2025 4:[address] [facility] Emergency Department [address] [place] [address] Chronic pain of left knee (Primary Dx) Discharge Disposition: Discharge to home or self care 2025 Telephone [facility] [address] [place] [address] [address] [place] [phone] Radha Carrillo NP 01/30/2025 8:59 AM CDT - 01/30/2025 11:59 PM CDT Hospital Encounter [facility] MOB 1 DIAG IMG [address] [place] [id number] Right knee pain, unspecified chronicity; Left knee pain, unspecified chronicity Discharge Disposition: Discharge to home or self care 01/30/2025 8:30 AM CDT Office Visit [facility] [address] [place] [address] [address] [place] [phone] Jimbo Barker PA Primary osteoarthritis of both knees (Primary Dx); Right knee pain, unspecified chronicity; Left knee pain, unspecified chronicity 01/17/2025 Telephone [facility] [address] [place] [address] [address] [place] [phone] Radha Carrillo NP 01/14/2025 7:08 AM CDT - 01/14/2025 9:[address] [facility] Emergency Department [facility] [place] [address] Héctor Roach DO Primary osteoarthritis of both knees (Primary Dx); Anxiety Discharge Disposition: Discharge to home or self care 01/09/2025 - 01/09/2025 11:59 PM CDT Hospital Encounter [facility] [employer] [facility] [place] [address] Discharge Disposition: Discharge to home or self care 12/28/2024 1:30 PM CDT Office Visit [facility] at [address] [place] [phone] Radha Carrillo NP Acute pain of left knee (Primary Dx); ABA (generalized anxiety disorder) 12/27/2024 Nurse Triage [facility] Medical Group Primary Care at [address] [place] [address] Radha Carrillo NP from Last 3 Months Immunizations Immunization Administration Dates Next Due Influenza, Unspecified 05/23/2024(Deferr ed: Patient Refused),05/09/2024(Deferred: Patient Refused),05/09/2023(Deferred: Patient Refused) Pneumococcal Polysaccharide PPV23 11/14/2014 Surgical History Surgery Date Site/Laterality Comments MENISCUS SURGERY Bilateral 2017, 2018 ROTATOR CUFF REPAIR 05/23/2021 Bilateral 05/23/212019 BICEPS TENDON REPAIR 05/23/2021 Right HYSTERECTOMY W/ BILATERAL SALPINGOOPHORECTOMY 08/09/2017 - 08/08/2018 Vaginal COLONOSCOPY 08/09/2007 - 08/08/2008 Medical History Medical History Date Comments Lumbar spondylolysis 03/13/2019 Mild Cervical spondylolysis 04/03/2022 Severe Osteoarthritis 09/22/2023 L knee Depression Anxiety Thyroid mass 02/02/2023 11 mm Asthma Reflux esophagitis Sjogren's disease 2017 Anesthesia complication did not go to sleep during colonoscopy Awareness under anesthesia Hyperlipidemia Hypertension Obesity Mucous cyst of digit of right hand 02/2025 Family History Medical History Relation Name Comments Stroke Father Breast cancer Maternal Grandmother Cancer Mother Colon cancer Mother Endometrial cancer Mother Breast cancer Mother's Sister Relation Name Status Comments Father Maternal Grandmother Mother Mother's Sister Social History Tobacco Use Types Packs/Day Years Used Date Smoking Tobacco: Never Tobacco Cessation:Counseling Given: Not Answered AUDIT-C Answer Date Recorded Q1: How often do you have a drink containing alc ohol? Monthly or less 02/28/2025 Q2: How many drinks containi ng alcohol do you have on a typical day when you are drinking? 1 or 2 02/28/2025 Q3: How often do you have si x or more drinks on one occasion? Never 02/28/2025 PHQ-2 Answer Date Recorded PHQ-2 Total Score (If total score is 3 or more points, staff should administer the PHQ-9) 1 12/04/2024 PHQ-9 Answer Date Recorded PHQ-9 Total Score 10 12/04/2024 Personal Safety Answer Date Recorded Have you ever been in or are you currently in a harmful physical or emotional relationship or is someone making you feel afraid or unsafe? Denies 02/28/2025 Comments No Sex and Gender Information Value Date Recorded Sex Assigned at Not on file Legal Sex Female 8:27 AM AGRICULTURE CONSULTANT Gender Identity Not on file Sexual Orientation Not on file Obstetrics History Last Filed Vital Signs Vital Sign Reading Time Taken Comments Blood Pressure 108/66 02/28/2025 3:10 PM CDT Pulse 73 02/28/2025 3:10 PM CDT Temperature 36.6 C (97.9 F) 02/28/2025 2:40 PM CDT Respiratory Rate 20 02/28/2025 3:10 PM CDT Oxygen Saturation 95% 02/28/2025 3:10 PM CDT Inhaled Oxygen Concentration - - Weight 120 kg (264 lb 8 oz) 02/28/2025 10:36 AM CDT Height 157.5 cm (5' 2) 02/16/2025 9:59 AM CDT Body Mass Index 48.38 02/16/2025 9:59 AM CDT Plan of Treatment Health Maintenance Due Date Last Done Comments DTaP/Tdap/Td Vaccine (1 - Tdap) 1971 Zoster Vaccine (1 of 2) 02/09/2012 Pneumococcal vaccine <65 (2 of 2 - PCV) 11/15/2015 11/14/2014 Covid-19 Vaccine (2023-2 5 season) 2024 08/05/2021, 01/10/2021, 12/19/2020 Colon Cancer Screening-Colonoscopy 09/21/2024 09/21/2019 Breast Cancer Screening-Mammogram 04/03/2025 04/03/2024, 03/23/2024, 04/02/2023 Influenza Vaccine (#1) 2025 Regular Well Visit/Exam 18-64 05/23/2025 05/23/2024 Depression Screening 12/04/2025 12/04/2024, 12/04/2024, 03/21/2024, Additional history exists Cervical Cancer Screening Discontinued 07/29/2017 Hepatitis B Screening Completed 05/18/2024 Hepatitis C Screening Completed 05/18/2024 Procedures Procedure Name Priority Date/Time Associated Diagnosis Comments FL FLUOROSCOPY < 1 HOUR IP Routine 02/28/2025 1:21 PM CDT [place] AN PROCEDURE PLACEHOLDER Routine 02/28/2025 12:42 PM CDT [place] AN ELECTIVE SUPRAGLOTTIC AIRWAY Routine 02/28/2025 12:42 PM CDT EXCISION CYST/LESION/MASS - FINGER 02/28/2025 12:20 PM CDT Mass of right finger Osteophyte of right hand Case Notes CHOICE 30 MINSRT THUMB MUCOUS CYST AND DIP OSTEOPHYTE EXCISION ECG 12-LEAD STAT 02/28/2025 10:27 AM CDT LARGE JOINT ARTHROCENTESIS Routine 02/16/2025 9:45 AM CDT Primary osteoarthritis of both knees Right knee pain, unspecified chronicity XR KNEE LEFT 3 VIEWS ED 02/14/2025 1:37 PM CDT EGFR STAT 02/14/2025 1:23 PM CDT DIFFERENTIAL AUTO STAT 02/14/2025 1:2 3 PM CDT COMPREHENSIVE METABOLIC PANEL STAT 02/14/2025 1:23 PM CDT CBC WITH AUTO DIFFERENTIAL STAT 02/14/2025 1:23 PM CDT XR KNEE LEFT 3 VIEWS Schedule Routine, Read Routine (OP Routine) 01/30/2025 9:12 AM CDT Left knee pain, unspecified chronicity XR KNEE RIGHT 3 VIEWS Schedule Routine, Read Routine (OP Routine) 01/30/2025 9:12 AM CDT Right knee pain, unspecified chronicity MN ARTHROCENTESIS ASPIR&/INJ MAJOR JT/BURSA W/O US Routine 01/30/2025 8:30 AM CDT Primary osteoarthritis of both knees Left knee pain, unspecified chronicity MN ARTHROCENTESIS ASPIR&/INJ MAJOR JT/BURSA W/O US Routine 01/30/2025 8:30 AM CDT Primary osteoarthritis of both knees Right knee pain, unspecified chronicity XR TRANSFER OF OUTSIDE FILMS Routine 01/09/2025 12:00 AM CDT HEPATITIS C ANTIBODY Routine 05/18/2024 9:24 AM CDT Encounter for hepatitis C screening test for low risk patient DIAGNOSTIC MAMMOGRAM W VALERIO Schedule Routine, Read Routine (OP Routine) 04/03/2024 11:29 AM CDT from Last 3 Months or Most Recently Relevant to Health Maintenance Results * FL Fluoroscopy < 1 Hour (02/28/2025 1:21 PM CDT) Narrative [facility] - 02/28/2025 1:22 PM CDT The images from this study are not interpreted by Radiology. Please refer to the physician's procedure / OR operative note. us Nohelia Garsia MD IMG FLUOROSCOPY PROCEDURE S Final Result RAD_ED_MHB_MHE * MN AN ELECTIVE SUPRAGLOTTIC AIRWAY, MN AN PROCEDURE PLACEHOLDER (02/28/2025 12:42 PM CDT) Narrative Juwan Leal MD - 02/28/2025 12:42 PM CDT Juwan Leal MD 02/28/2025 12:43 PM Airway Patient location: OR Urgency: elective Date/time: 02/28/2025 12:26 PM Indications for airway management: anesthesia Difficult airway: no Staff: Placed by: Anesthesiologist: Juwan Leal MD Emergent airway documentation: Risks and benefits discussed: yes Consent obtained: yes Consent given by: patient Airway prep: Preoxygenated: yes Patient position: sniffing Mask difficulty assessment: 1 - vent by mask Spontaneous ventilation during airway: absent Sedation level during airway: deep Final airway details: Final airway type: supraglottic airway Final supraglottic airway: IGel SGA size: 4 Number of attempts: 1 Additional comments: Atraumatic placement, dentition unchanged. Performed by José Miguel ERAZO us Juwan Leal MD ANESTHESIA ORDERABLES Final Re sult * ECG 12 lead (02/28/2025 10:27 AM CDT) Ventricular Rate EKG/Min 70 BPM [facility] Atrial Rate 70 BPM [facility] MN-Interval (MSEC) 168 ms [facility] QRS-Interval (MSEC) 86 ms [facility] QT-Interval (MSEC) 410 ms [facility] QTc 442 ms [facility] P [place] 55 degrees [facility] R [place] 16 degrees [facility] T [place] 10 degrees [facility] Diagnosis Normal sinus rhythm Cannot rule out Anterior infarct , age undetermined Abnormal ECG No previous ECGs available Confirmed by ARTUR ESTRELLA M.D. ([id number]) on 02/28/2025 11:01:12 PM [facility] 02/28/2025 10:2 7 AM CDT 02/28/2025 11:01 PM CDT Salima Lopez NP ECG ORDERABLES Krissy cao Result [facility] * XR Knee Left 3 Views (02/14/2025 1:37 PM CDT) Anatomical Region Laterality Modality Lower Extremities, Knee Left Computed Radiography 02/14/2025 1:56 PM CDT Narrative 02/14/2025 1:57 PM CDT EXAM DESCRIPTION: XR KNEE LEFT 3 VIEWS REASON FOR STUDY: L knee pain Pt reports has chronic issues with both knees. States L knee got an injection on 01/30. Wednesday started having redness in L knee and it was hot to touch. TECHNIQUE: 3 radiographic view(s) of the left knee . COMPARISON: 01/30/2025 FINDINGS: Moderate tricompartmental osteoarthritis. No acute fracture or malalignment. No osseous erosions. No significant knee joint effusion. IMPRESSION: No acute osseous abnormality. No significant knee joint effusion. THIS IS AN ELECTRONICALLY VERIFIED FINAL REPORT 02/14/2025 1:57 PM - Electronically signed by Andrea Knight M.D. KR: ANGEL Report ID: [id number] Reading Location: [id number] Procedure Note Andrea Knight MD - 02/14/2025 EXAM DESCRIPTION: XR KNEE LEFT 3 VIEWS REASON FOR STUDY: L knee pain Pt reports has chronic issues with both knees. States L knee got aninjection on 01/30. Wednesday started having redness in L knee and it was hot totouch. TECHNIQUE: 3 radiographic view(s) of the left knee . COMPARISON: 01/30/2025 FINDINGS: Moderate tricompartmental osteoarthritis. No acute fracture or malalignment. No osseous erosions. No significant knee joint effusion. IMPRESSION: No acute osseous abnormality. No significant knee joint effusion. THIS IS AN ELECTRONICALLY VERIFIED FINAL REPORT 02/14/2025 1:57 PM - Electronically signed by Andrea Knight M.D. KR: KR Report ID: [id number] Reading Location: [id number] Griselda OLEA IMG XR PROCEDURES Final Result * eGFR (02/14/2025 1:23 PM CDT) eGFR >90 >=60 mL/min/1. 73 m2 Comment: Interpretive Data Reference Interval Normal >/= 90 mL/min/1.73m2 Mildly decreased* 60 - 89 mL/min/1.73m2 Mildly to moderately decreased 45 - 59 mL/min/1.73m2 Moderately to severely decreased 30 - 44 mL/min/1.73m2 Severely decreased 15 - 29 mL/min/1.73m2 Kidney Failure < 15 mL/min/1.73m2 *Relative to young adult level Estimated glomerular filtration rate is determined by the 2020 CKD-EPI equation recommended by the National Kid[employer] (A Unifying Approach to GFR Estimation: Recommendations of the NKF-ASK Task Force on Reassessing the Inclusion of Race in Diagnosing Kidney Disease, JASN 2020). The CKD-EPI equation should not be used for patients with unstable renal function and has not been validated in children and those over 70. Current interpretive data was last reviewed 2021. Testing performed by: [address] [address] Blood 02/14/2025 1:23 PM CDT 02/14/2025 1:33 PM CDT Griselda OLEA LAB BLOOD ORDERABL ES Final Result [facility] [address] Department [place] [address] * Differential, auto (02/14/2025 1:23 PM CDT) Neutrophil abs 3.27 1.50 - 6.50 K/cumm Comment:Testing performed by : [address] [address] Imm gran abs 0.02 0.00 - 0.10 K/cumm HILDA Comment:Testing performed by : [address] [address] Lymphocyte abs 1.66 0.80 - 3.30 K/cumm HILDA Comment:Testing performed by : [address] [address] Monocyte abs 0.45 0.20 - 0.80 K/cumm HILDA Comment:Testing performed by : [address] [address] Eosinophil abs 0.21 0.00 - 0.50 K/cumm HILDA Comment:Testing performed by : [address] [address] Basophil abs 0.05 0.00 - 0.10 K/cumm HILDA Comment:Testing performed by : [address] [address] Neutrophil pct 57.7 % HILDA Comment: Interpretive Data Percent cell count reference ranges are not reported, since discordance with absolute values may lead to misinterpretation of CBC data. Current Interpretive Data was last revised on 2017. Testing performed by: [address] [address] Imm gran pct 0.4 % [facility] Comment: Interpretive Data Percent cell count reference ranges are not reported, since discordance with absolute values may lead to misinterpretation of CBC data. Current Interpretive Data was last revised on 2017. Testing performed by: [address] [address] Lymphocyte pct 29.3 % [facility] Comment: Interpretive Data Percent cell count reference ranges are not reported, since discordance with absolute values may lead to misinterpretation of CBC data. Current Interpretive Data was last revised on 2017. Testing performed by: [address] [address] Monocyte pct 8.0 % [facility] Comment: Interpretive Data Percent cell count reference ranges are not reported, since discordance with absolute values may lead to misinterpretation of CBC data. Current Interpretive Data was last revised on 2017. Testing performed by: [address] [address] Eosinophil pct 3.7 % [facility] Comment: Interpretive Data Percent cell count reference ranges are not reported, since discordance with absolute values may lead to misinterpretation of CBC data. Current Interpretive Data was last revised on 2017. Testing performed by: [address] [address] Basophil pct 0.9 % [facility] Comment: Interpretive Data Percent cell count reference ranges are not reported, since discordance with absolute values may lead to misinterpretation of CBC data. Current Interpretive Data was last revised on 2017. Testing performed by: [address] [address] Blood 02/14/2025 1:23 PM CDT 02/14/2025 1:33 PM CDT us Griselda OLEA LAB BLOOD ORDERABL ES Final Result [facility] [address] Department [place] [address] * (ABNORMAL) CBC with auto differential (02/14/2025 1:23 PM CDT) [facility] Signature WBC 5.66 3.80 - 9.90 K/cumm Comment:Testing performed by : [address] [address] Hgb 13.5 11.9 - 15.5 g/dL HILDA Comment:Testing performed by : [address] [address] Hct 40.2 35.6 - 45.5 % HILDA Comment:Testing performed by : [address] [address] Plt 293 150 - 400 K/cumm HILDA Comment:Testing performed by : [address], [address] MPV 8.8(L) 9.1 - 12.3 fL HILDA Comment:Testing performed by : [address], [address] RBC 4.51 3.90 - 5.20 M/cumm HILDA Comment:Testing performed by : [address] [address] MCV 89.1 81.3 - 96.4 fL HILDA Comment:Testing performed by : [address], [address] MCH 29.9 27.1 - 33.3 pg HILDA Comment:Testing performed by : [address], [address] MCHC 33.6 32.3 - 35.7 g/dL HILDA Comment:Testing performed by : [address], [address] RDW CV 12.8 11.1 - 14.9 % HILDA Comment:Testing performed by : [address], [address] RDW SD 41.4 35.7 - 48.1 fL HILDA Comment:Testing performed by : [address], [address] NRBC abs 0.00 0.00 - 0.01 K/cumm HILDA Comment:Testing performed by : [address] [address] Blood 02/14/2025 1:23 PM CDT 02/14/2025 1:33 PM CDT Griselda OLEA LAB BLOOD ORDERABL ES Final Result [facility] [address] Department [place] [address] * Comprehensive metabolic panel (02/14/2025 1:23 PM CDT) Sodium 141 135 - 145 mmol/L Comment:Testing performed by : [address] [address] Potassium, pl 4.0 3.3 - 4.9 mmol/L HILDA Comment:Testing performed by : [address] [address] Chloride 104 97 - 110 mmol/L HILDA Comment:Testing performed by : [address] [address] CO2 28 22 - 32 mmol/L HILDA Comment:Testing performed by : [address] [address] Anion gap 9 2 - 15 mmol/L HILDA Comment:Testing performed by : [address] [address] BUN 14 6 - 25 mg/dL HILDA Comment:Testing performed by : [address] [address] Creatinine 0.73 0.60 - 1.10 mg/dL HILDA Comment:Testing performed by : [address] [address] Glucose 100 70 - 199 mg/dL HILDA Comment: Interpretive Data Fasting glucose >/= 126 mg/dl is diagnostic for diabetes. Fasting is defined as no caloric intake for at least 8 hours. Fasting glucose between 100 mg/dl to 125 mg/dl is diagnostic of prediabetes. In a patient with classic symptoms of hyperglycemia or hyperglycemic crisis, a random glucose >/= 200 mg/dl is diagnostic for diabetes. In the absence of unequivocal hyperglycemia, results should be confirmed by repeat testing. The classification and Diagnosis of Diabetes Diabetes Care 202; 46: S19-S40. Current interpretive data was last revised 2022. Testing performed by: [address] [address] Calcium 9.7 8.5 - 10.3 mg/dL HILDA Comment:Testing performed by : [address] [address] Bilirubin, total 0.3 0.1 - 1.2 mg/dL HILDA Comment:Testing performed by : [address] [address] Protein, pl 6.9 6.5 - 8.5 g/dL HILDA Comment:Testing performed by : [address] [address] Albumin 4.2 3.5 - 5.0 g/dL HILDA Comment:Testing performed by : [address] [address] Alk phos 50 40 - 130 Units/L HILDA Comment:Testing performed by : [address] [address] ALT 26 7 - 45 Units/L HILDA Comment:Testing performed by : [address] [address] AST 21 10 - 45 Units/L HILDA Comment:Testing performed by : [address] [address] Blood 02/14/2025 1:23 PM CDT 02/14/2025 1:33 PM CDT us Griselda OLEA LAB BLOOD ORDERABL ES Final Result [facility] [address] Department [place] [address] * XR Knee Right 3 View (01/30/2025 9:12 AM CDT) Anatomical Region Laterality Modality Lower Extremities, Knee Right Computed Radiography 01/30/2025 10:0 4 PM CDT Narrative 01/30/2025 10:05 PM CDT EXAM DESCRIPTION: 1. XR KNEE RIGHT 3 VIEWS; 2. XR KNEE LEFT 3 VIEWS REASON FOR STUDY: PAIN Chronic bilateral knee pain FINDINGS: Three views each knee submitted without comparison. No acute fracture. Severe medial predominant bilateral knee osteoarthritis with genu varus. Small knee effusions. IMPRESSION: 1. Severe medial predominant bilateral knee osteoarthritis with genu varus. THIS IS AN ELECTRONICALLY VERIFIED FINAL REPORT 01/30/2025 10:05 PM - Electronically signed by Robinson Ferrera M.D. MF: CARMENZA Report ID: [id number] Reading Location: [id number] Procedure Note Robinson Ferrera MD - 01/30/2025 EXAM DESCRIPTION: 1. XR KNEE RIGHT 3 VIEWS; 2. XR KNEE LEFT 3 VIEWS REASON FOR STUDY: PAIN Chronic bilateral knee pain FINDINGS: Three views each knee submitted without comparison. No acute fracture. Severe medial predominant bilateral kneeosteoarthritis with genu varus. Small knee effusions. IMPRESSION: 1. Severe medial predominant bilateral knee osteoarthritis with genuvarus. THIS IS AN ELECTRONICALLY VERIFIED FINAL REPORT 01/30/2025 10:05 PM - Electronically signed by Robinson Ferrera M.D. MF: CARMENZA Report ID: [id number] Reading Location: [id number] us Jimbo OLEA IMG XR PROCEDURES Fin al Result * XR Knee Left 3 View (01/30/2025 9:12 AM CDT) Anatomical Region Laterality Modality Lower Extremities, Knee Left Computed Radiography 01/30/2025 10:0 4 PM CDT Narrative 01/30/2025 10:05 PM CDT EXAM DESCRIPTION: 1. XR KNEE RIGHT 3 VIEWS; 2. XR KNEE LEFT 3 VIEWS REASON FOR STUDY: PAIN Chronic bilateral knee pain FINDINGS: Three views each knee submitted without comparison. No acute fracture. Severe medial predominant bilateral knee osteoarthritis with genu varus. Small knee effusions. IMPRESSION: 1. Severe medial predominant bilateral knee osteoarthritis with genu varus. THIS IS AN ELECTRONICALLY VERIFIED FINAL REPORT 01/30/2025 10:05 PM - Electronically signed by Robinson Ferrera M.D. MF: CARMENZA Report ID: [id number] Reading Location: [id number] Procedure Note Robinson Ferrera MD - 01/30/2025 EXAM DESCRIPTION: 1. XR KNEE RIGHT 3 VIEWS; 2. XR KNEE LEFT 3 VIEWS REASON FOR STUDY: PAIN Chronic bilateral knee pain FINDINGS: Three views each knee submitted without comparison. No acute fracture. Severe medial predominant bilateral kneeosteoarthritis with genu varus. Small knee effusions. IMPRESSION: 1. Severe medial predominant bilateral knee osteoarthritis with genuvarus. THIS IS AN ELECTRONICALLY VERIFIED FINAL REPORT 01/30/2025 10:05 PM - Electronically signed by Robinson Ferrera M.D. MF: CARMENZA Report ID: [id number] Reading Location: [id number] us Jimbo OLEA IMG XR PROCEDURES Fin al Result * [place] ARTHROCENTESIS ASPIR&/INJ MAJOR JT/BURSA W/O US (01/30/2025 8:30 AM CDT) Narrative Jimbo Barker PA - 01/30/2025 8:30 AM CDT Jimbo Barker PA 02/13/2025 1:06 PM Large Joint (Hip, Knee, Shoulder) Injection: L knee Performed by: Jimbo Barker PA Authorized by: Jimbo Barker PA Large Joint Injection/Aspiration: Consent Given by: Patient Site marked: the procedure site was marked Timeout: prior to procedure the correct patient, procedure, and site was verified Verbal consent obtained: Yes Supporting Documentation: Indications: Pain Procedure Details: Location: Knee Site: L knee Prep: patient was prepped and draped in usual sterile fashion Needle Size: 22 G Approach: Anterolateral Ultrasound guided: No Fluroscopic guidance: No Medications: 2 mL lidocaine 10 mg/mL (1 %); 40 mg triamcinolone 40 mg/mL Patient tolerance: Patient tolerated the procedure well with no immediate complications Jimbo OLEA IN CLINIC/BEDSIDE ORD ERABLES Final Result * MN ARTHROCENTESIS ASPIR&/INJ MAJOR JT/BURSA W/O US (01/30/2025 8:30 AM CDT) Jimbo Arevalo PA - 01/30/2025 8:30 AM CDT Jimbo Barker PA 02/13/2025 1:06 PM Large Joint (Hip, Knee, Shoulder) Injection: R knee Performed by: Jimbo Barker PA Authorized by: Jimbo Barker PA Large Joint Injection/Aspiration: Consent Given by: Patient Site marked: the procedure site was marked Timeout: prior to procedure the correct patient, procedure, and site was verified Verbal consent obtained: Yes Supporting Documentation: Indications: Pain Procedure Details: Location: Knee Site: R knee Prep: patient was prepped and draped in usual sterile fashion Needle Size: 22 G Approach: Anterolateral Ultrasound guided: No Medications: 2 mL lidocaine 10 mg/mL (1 %); 40 mg triamcinolone 40 mg/mL Patient tolerance: Patient tolerated the procedure well with no immediate complications Jimbo OLEA IN CLINIC/BEDSIDE ORD ERABLES Final Result * XR Outside Reference (01/09/2025 12:00 AM CDT) Narrative TANO_ED_MHB_MHE - 01/30/2025 8:45 AM CDT This order has been auto-finalized and does not contain a result. us Provider Transcribed Order IMG XR PROCEDURES Fin al Result RAD_CLARIO_MHB_MHE * Hepatitis C antibody Blood (05/18/2024 9:24 AM CDT) Hep C Ab NON-REACTI VE NON-REACT ROBERT [facility] Comment: HCV antibody was non-reactive. There is no laboratory evidence of HCV infection. In most cases, no further action is required. However, if recent HCV exposure is suspected, a test for HCV RNA (test code 56960) is suggested. For additional information please refer to http://education.Onaro/faq/FVY63e1 (This link is being provided for informational/ educational purposes only.) Blood 05/18/2024 9:24 AM CDT 05/18/2024 9:24 AM CDT Narrative [facility] - 05/20/2024 12:04 AM CDT FASTING:YES FASTING: YES Radha Carrillo NP LAB MICROBIOLOGY - GENERAL ORDER CHRISTOS Final Result [facility] [address] [place] [address] * Diagnostic Mammogram W Valerio (04/03/2024 11:29 AM CDT) Anatomical Region Laterality Modality Breast Mammography Historical Provider [facility] MAMMO PROCEDURES Krissy l Result from Last 3 Months or Most Recently Relevant to Health Maintenance Insurance [facility] [employer] Care Teams Supervisor Filling And Packing Relationship Specialty Start Date End Date Radha Carrillo NP [address] [place] [id number] PCP - General Family Medicine 03/21/24
--- OUTSIDE RECORDS SUMMARY | 2025-03-08 10:51 | XMS_ITS | Referral Summary ---
Author Organization [facility] [address] Address [facility] [place][note 2]2 [place] [address] Care Team Providers Care Mid Level Game Designer Name Role Phone Radha Carrillo DOMESTIC VIOLENCE COUNSELOR Primary Care Provider [phone] Encounters Date Type Department Care Team Description 03/06/2025 Telephone [facility] Medical Group Primary Care at [address] [place] [address] Radha Carrillo NP 02/28/2025 12:20 PM CDT - 02/28/2025 1:25 PM CDT Surgery [facility] OR [address] [place] [address] Nohelia Garsia MD EXCISION RIGHT THUMB MUCOUS CYST AND DISTAL INTERPHALANGEAL OSTEOPHYTE 02/28/2025 12:22 PM CDT Anesthesia Event [facility] OR [address] [place] [address] Juwan Leal MD Taylor-White, Carlotta A., NP 02/28/2025 9:44 AM CDT - 02/28/2025 3:45 PM CDT Hospital Encounter [facility] OR [address] [place] [address] Nohelia Garsia MD Mass of right finger (Primary Dx); Osteophyte of right hand Discharge Disposition: Discharge to home or self care 02/16/2025 10:30 AM CDT Office Visit [facility] Medical Group Hand Surgery [address] [place] [phone] Eloina Capellan PA Ganglion cyst of joint of finger of right hand (Primary Dx) 02/16/2025 9:45 AM CDT Office Visit [facility] Medical [facility] Orthopedics and Sports Medicine [address] [phone] Jimbo Barker PA Primary osteoarthritis of both knees (Primary Dx); Right knee pain, unspecified chronicity; Left knee pain, unspecified chronicity 02/14/2025 2:21 PM CDT - 02/14/2025 4:07 PM CDT [facility] Emergency Department [facility] [place] [address] Chronic pain of left knee (Primary Dx) Discharge Disposition: Discharge to home or self care 2025 Telephone [facility] Primary Care [address] [place] [address] [address] [place] [address] Radha Carrillo NP 01/30/2025 8:59 AM CDT - 01/30/2025 11:59 PM CDT [facility] M[facility] 1 DIAG IMG [address] [place] [address] Right knee pain, unspecified chronicity; Left knee pain, unspecified chronicity Discharge Disposition: Discharge to home or self care 01/30/2025 8:30 AM CDT Office Visit [facility] Orthopedics and Sports Medicine [address] [place] [address] [address] [place] [phone] Jimbo Barker PA Primary osteoarthritis of both knees (Primary Dx); Right knee pain, unspecified chronicity; Left knee pain, unspecified chronicity 01/17/2025 Telephone [facility] Primary Care [address] [place] [phone] Radha Carrillo NP 01/14/2025 7:08 AM CDT - 01/14/2025 9:32 AM CDT [facility] Emergency Department [address] [place] [address] Héctor Roach DO Primary osteoarthritis of both knees (Primary Dx); Anxiety Discharge Disposition: Discharge to home or self care 01/09/2025 - 01/09/2025 11:59 PM CDT Hospital Encounter [facility] [employer] [address] [facility] [place] [address] Discharge Disposition: Discharge to home or self care 12/28/2024 1:30 PM CDT Office Visit [facility] Primary Care at [address] [place] [address] Radha Carrillo NP Acute pain of left knee (Primary Dx); ABA (generalized anxiety disorder) 12/27/2024 Nurse Triage [facility] Primary Care at [address] [place] [address] Radha Carrillo NP from Last 3 Months Allergies Active Allergy Reactions Criticality Noted Date Comments Amoxicillin-Pot Clavulanate Other (See comments) 10/25/2024 Stomach upset Celecoxib Hives Medium 11/27/2024 Doxycycline Hives Medium 10/30/2024 Fezolinetant Hives Medium 03/21/2024 Propantheline Hives Medium 02/16/2025 Terconazole Blisters High 02/16/2025 Mouth blisters Medications azelastine 205.5 mcg (0.15 %) spray,non-aerosol USE 1 TO 2 SPRAYS IN EACH NOSTRIL TWICE DAILY Active cetirizine (ZyrTEC) 10 mg tablet Take [...] TIMES DAILY NEEDED Oral for 30 Days Active Lactobacillus acidophilus (Probiotic) 10 billion cell [...] 80 MG ORALLY DAILY 90 capsule 3 025 Active Additional Information Patient taking differently: 80 mg oral Daily, Reported on 02/28/2025 atorvastatin (LIPITOR) 10 mg tablet 10 MG ORALLY DAILY TAKE 1 TABLET BY MOUTH DAILY 90 tablet 3 025 Active escitalopram (LEXAPRO) 20 mg tabletIndications :Major depressive disorder, recurrent, mild TAKE 1 TABLET BY MOUTH EVERY DAY 90 tablet 3 025 Active busPIRone (BUSPAR) 15 mg tabletIndications :ABA (generalized anxiety disorder) Take 2 tablets (30 mg total) by mouth 2 (two) times a day 120 tablet 3 025 Active Additional Information Patient taking differently: 15 mgoral 2 times daily, Reported on 02/28/2025 methocarbamoL (ROBAXIN) 500 mg tabletIndications :Chronic bilateral low back pain without sciatica,Chronic neck pain TAKE 1 TABLET (500 MG TOTAL) BY MOUTH 2 (TWO) TIMES A DAY NEEDED FOR MUSCLE SPASMS 60 tablet [address] (PROTONIX) 40 mg EC tablet Take 1 tablet (40 mg total) by mouth daily 90 tablet 1 025 Active montelukast (SINGULAIR) 10 mg tablet TAKE 1 TABLET BY MOUTH EVERY DAY 90 tablet 1 025 Active naproxen (NAPROSYN) 500 mg tabletIndications :Primary [...] 09/21/2024 Assessment & Plan (09/21/2024 3:26 PM MOLDER HELPER): Referral made to orthopedic hand specialist Insomnia 09/21/2024 Assessment & Plan (09/21/2024 3:28 PM MOLDER HELPER): Uncontrolled Started on hydroxyzine as directed as [...] losartan-hydrochlorothiazide Assessment & Plan (09/21/2024 3:26 PM MOLDER HELPER): Uncontrolled Continued on losartan-hydrochlorothiazide Recommended 2 gram [...] pasta, and corn Will monitor for stability AAB (generalized anxiety disorder) 03/24/2024 Assessment & Plan [...] days Assessment & Plan (09/21/2024 3:25 PM MOLDER HELPER): Uncontrolled Continued on Lexapro, buspirone, and propranolol [...] week Assessment & Plan (09/21/2024 3:24 PM MOLDER HELPER): Worsened Encouraged to: Make healthy food choices, [...] Encouraged to keep appointment for consultation with baby stroller rental clerk Assessment & Plan (03/24/2024 6:56 AM CDT): [...] 1:48 PM CDT): New referral made to residential carpenter at [facility]/Dr. Garcia Assessment & Plan (10/18/2024 9:36 AM CDT): Referral made to endocrinology for further evaluation and management Assessment & Plan (05/23/2024 2:30 PM CDT): Chronic, stable per patient report, historically monitored by medical laboratory manager, last test summer 2023 Will refer to residential carpenter, however, will be losing insurance in the [...] for annual physical exam, sooner if needed. Immunizations Immunization Administration Dates Next Due Influenza, Unspecified 05/23/2024(Deferr ed: Patient Refused),05/09/2024(Deferred: Patient Refused),05/09/2023(Deferred: Patient Refused) Pneumococcal Polysaccharide PPV23 11/14/2014 Social History Tobacco Use Types Packs/Day Years [...] on file Legal Sex Female 8:27 AM MOLDER HELPER Gender Identity Not on file Sexual Orientation [...] 02/16/2025 9:59 AM CDT Plan of Treatment Not on file Procedures Procedure Name Priority Date/Time Associated Diagnosis Comments FL FLUOROSCOPY < 1 HOUR IP Routine 02/28/2025 1:21 PM CDT DE AN PROCEDURE PLACEHOLDER Routine 02/28/2025 12:42 PM CDT DE AN ELECTIVE SUPRAGLOTTIC AIRWAY Routine 02/28/2025 12:42 [...] AM CDT Right knee pain, unspecified chronicity DE ARTHROCENTESIS ASPIR&/INJ MAJOR JT/BURSA W/O US Routine 01/30/2025 8:30 AM CDT Primary osteoarthritis of both knees Left knee pain, unspecified chronicity DE ARTHROCENTESIS ASPIR&/INJ MAJOR JT/BURSA W/O US Routine [...] 1 Hour (02/28/2025 1:21 PM CDT) Narrative ENMANUEL_KENTON_MHE - 02/28/2025 1:22 PM CDT The images from this study are not interpreted by Radiology. Please refer to the physician's procedure / OR operative note. Nohelia Garsia MD IMG FLUOROSCOPY PROCEDURE S Final Result RAD_CLARIO_MHB_MHE * DE AN ELECTIVE SUPRAGLOTTIC AIRWAY, DE AN PROCEDURE PLACEHOLDER (02/28/2025 12:42 PM CDT) [...] AM CDT) Ventricular Rate EKG/Min 70 BPM [facility] Atrial Rate 70 BPM [facility] DE-Interval (MSEC) 168 ms [facility] QRS-Interval (MSEC) 86 ms [facility] QT-Interval (MSEC) 410 ms [facility] QTc 442 ms [facility] P Adena 55 degrees [facility] R Adena 16 degrees [facility] T Adena 10 degrees [facility] Diagnosis Normal sinus rhythm Cannot rule out Anterior infarct , age undetermined Abnormal ECG No previous ECGs available Confirmed by ARTUR ESTRELLA M.D. ([id number]) on 02/28/2025 11:01:12 PM [facility] 02/28/2025 10:2 7 AM CDT 02/28/2025 11:01 PM CDT Salima Lopez DOMESTIC VIOLENCE COUNSELOR ECG ORDERABLES Krissy cao Result [facility] * XR Knee Left 3 Views (02/14/2025 [...] Andrea Knight M.D. KR: ANGEL Report ID: [id number] Reading Location: [place] [address] Procedure Note Andrea Knight MD - 02/14/2025 [...] Andrea Knight M.D. KR: ANGEL Report ID: [id number] Reading Location: [place] [address] Griselda OLEA IMG XR PROCEDURES Final Result [...] of Race in Diagnosing Kidney Disease, JASN 202). The CKD-EPI equation should not be used for patients with unstable renal function and has not been validated in children and those over 70. Current interpretive data was last reviewed 2021. Testing performed by: [facility], [address] [place] [address]., [address] Blood 02/14/2025 1:23 PM CDT 02/14/2025 1:33 PM CDT Griselda OLEA LAB BLOOD ORDERABL ES Final Result HILDA DON [address] [place] [address] Department [place] [address] * Differential, auto (02/14/2025 1:23 PM CDT) Neutrophil abs 3.27 1.50 - 6.50 K/cumm Comment:Testing performed by : [address] [address] Imm gran abs 0.02 0.00 - 0.10 K/cumm HILDA Comment:Testing performed by : [address] [address] Lymphocyte abs 1.66 0.80 - 3.30 K/cumm HILDA Comment:Testing performed by : [address] [address] Monocyte abs 0.45 0.20 - 0.80 K/cumm HILDA Comment:Testing performed by : [address] [address] Eosinophil abs 0.21 0.00 - 0.50 K/cumm HILDA Comment:Testing performed by : [address] [address] Basophil abs 0.05 0.00 - 0.10 K/cumm HILDA Comment:Testing performed by : [address] [address] Neutrophil pct 57.7 % HILDA Comment: Interpretive Data Percent cell count reference ranges are not reported, since discordance with absolute values may lead to misinterpretation of CBC data. Current Interpretive Data was last revised on 2017. Testing performed by: [address] [address] Imm gran pct 0.4 % [facility] Comment: Interpretive Data Percent cell count reference ranges are not reported, since discordance with absolute values may lead to misinterpretation of CBC data. Current Interpretive Data was last revised on 2017. Testing performed by: [address] [address] Lymphocyte pct 29.3 % [facility] Comment: Interpretive Data Percent cell count reference ranges are not reported, since discordance with absolute values may lead to misinterpretation of CBC data. Current Interpretive Data was last revised on 2017. Testing performed by: [address] [address] Monocyte pct 8.0 % [facility] Comment: Interpretive Data Percent cell count reference ranges are not reported, since discordance with absolute values may lead to misinterpretation of CBC data. Current Interpretive Data was last revised on 2017. Testing performed by: [address] [address] Eosinophil pct 3.7 % [facility] Comment: Interpretive Data Percent cell count reference ranges are not reported, since discordance with absolute values may lead to misinterpretation of CBC data. Current Interpretive Data was last revised on 2017. Testing performed by: [address] [address] Basophil pct 0.9 % [facility] Comment: Interpretive Data Percent cell count reference ranges are not reported, since discordance with absolute values may lead to misinterpretation of CBC data. Current Interpretive Data was last revised on 2017. Testing performed by: [address] [address] Blood 02/14/2025 1:23 PM CDT 02/14/2025 1:33 PM CDT Griselda OLEA LAB BLOOD ORDERABL ES Final Result [facility] [address] Department [place] [address] * (ABNORMAL) CBC with auto differential (02/14/2025 1:23 PM CDT) [facility] Signature WBC 5.66 3.80 - 9.90 K/cumm Comment:Testing performed by : [address] [address] Hgb 13.5 11.9 - 15.5 g/dL HILDA Comment:Testing performed by : [address] [address] Hct 40.2 35.6 - 45.5 % HILDA Comment:Testing performed by : [address] [address] Plt 293 150 - 400 K/cumm HILDA Comment:Testing performed by : [address] [address] MPV 8.8(L) 9.1 - 12.3 fL HILDA Comment:Testing performed by : [address], [address] RBC 4.51 3.90 - 5.20 M/cumm HILDA Comment:Testing performed by : [address] [address] MCV 89.1 81.3 - 96.4 fL HILDA Comment:Testing performed by : [address] [address] MCH 29.9 27.1 - 33.3 pg HILDA Comment:Testing performed by : [address] [address] MCHC 33.6 32.3 - 35.7 g/dL HILDA Comment:Testing performed by : [address] [address] RDW CV 12.8 11.1 - 14.9 % HILDA Comment:Testing performed by : [address], [address] RDW SD 41.4 35.7 - 48.1 fL CERNER MH Comment:Testing performed by : [address] [address] NRBC abs 0.00 0.00 - 0.01 K/cumm HILDA DON Comment:Testing performed by : [address] [address] Blood 02/14/2025 1:23 PM CDT 02/14/2025 1:33 PM CDT us Griselda OLEA LAB BLOOD ORDERABL ES Final Result HILDA [address] Department [place] [address] * Comprehensive metabolic panel (02/14/2025 1:23 PM CDT) Sodium 141 135 - 145 mmol/L Comment:Testing performed by : [address] [address] Potassium, pl 4.0 3.3 - 4.9 mmol/L HILDA Comment:Testing performed by : [address] [address] Chloride 104 97 - 110 mmol/L HILDA Comment:Testing performed by : [address] [address] CO2 28 22 - 32 mmol/L HILDA Comment:Testing performed by : [address] [address] Anion gap 9 2 - 15 mmol/L HILDA Comment:Testing performed by : [address] [address] BUN 14 6 - 25 mg/dL HILDA Comment:Testing performed by : [address] [address] Creatinine 0.73 0.60 - 1.10 mg/dL HILDA Comment:Testing performed by : [address] [address] Glucose 100 70 - 199 mg/dL HILDA [...] classification and Diagnosis of Diabetes Diabetes Care 2021; 46: S19-S40. Current interpretive data was last revised 2022. Testing performed by: [address] [address] Calcium 9.7 8.5 - 10.3 mg/dL HILDA Comment:Testing performed by : [address] [address] Bilirubin, total 0.3 0.1 - 1.2 mg/dL HILDA Comment:Testing performed by : [address] [address] Protein, pl 6.9 6.5 - 8.5 g/dL HILDA Comment:Testing performed by : [address] [address] Albumin 4.2 3.5 - 5.0 g/dL HILDA Comment:Testing performed by : [address] [address] Alk phos 50 40 - 130 Units/L HILDA Comment:Testing performed by : [address] [address] ALT 26 7 - 45 Units/L HILDA Comment:Testing performed by : [address] [address] AST 21 10 - 45 Units/L HILDA Comment:Testing performed by : [address] [address] Blood 02/14/2025 1:23 PM CDT 02/14/2025 1:33 PM CDT us Griselda LOEA LAB BLOOD ORDERABL ES Final Result HILDA [address] Department [place] [address] * XR Knee Right 3 View (01/30/2025 [...] Robinson Ferrera M.D. MF: CARMENZA Report ID: [id number] Reading Location: [id number] Procedure Note Robinson Ferrera MD - 01/30/2025 [...] Robinson Ferrera M.D. MF: CARMENZA Report ID: [id number] Reading Location: [id number] Jimbo OLEA IMG XR PROCEDURES Fin al [...] Robinson Ferrera M.D. MF: CARMENZA Report ID: [id number] Reading Location: [id number] Procedure Note Robinson Ferrera MD - 01/30/2025 [...] Robinson Ferrera M.D. MF: CARMENZA Report ID: [id number] Reading Location: [id number] us Jimbo OLEA IMG XR PROCEDURES Fin al Result * DE ARTHROCENTESIS ASPIR&/INJ MAJOR JT/BURSA W/O US (01/30/2025 [...] the procedure well with no immediate complications us Jimbo OLEA IN CLINIC/BEDSIDE ORD ERABLES Final Result * DE ARTHROCENTESIS ASPIR&/INJ MAJOR JT/BURSA W/O US (01/30/2025 [...] the procedure well with no immediate complications us Jimbo OLEA IN CLINIC/BEDSIDE ORD ERABLES Final Result * XR Outside Reference (01/09/2025 12:00 AM CDT) Narrative TANO_ED_KENTON_MHE - 01/30/2025 8:45 AM CDT This order has been auto-finalized and does not contain a result. us Provider Transcribed Order IMG XR PROCEDURES Fin al Result TANO_ED_MHB_MHE * Hepatitis C antibody Blood (05/18/2024 9:24 AM CDT) Hep C Ab NON-REACTI VE NON-REACT ROBERT [facility] Comment: HCV antibody was non-reactive. There is no laboratory evidence of HCV infection. In most cases, no further action is required. However, if recent HCV exposure is suspected, a test for HCV RNA (test code 02879) is suggested. For additional information please refer to http://education.Leaderz/faq/VQE71p5 (This link is being provided for informational/ educational purposes only.) Blood 05/18/2024 9:24 AM CDT 05/18/2024 9:24 AM CDT Narrative [facility] - 05/20/2024 12:04 AM CDT FASTING:YES FASTING: YES Radha Carrillo NP LAB MICROBIOLOGY - GENERAL ORDER CHRISTOS Final Result Performing Organization Address [facility] de Phone Number [facility] [address] [place] [address] * Diagnostic Mammogram W Valerio (04/03/2024 11:29 AM CDT) Anatomical Region Laterality Modality Breast Mammography Historical Provider [facility] MAMMO PROCEDURES Krissy l Result from Last 3 Months or Most Recently Relevant to Health Maintenance Insurance RENATO ALLEGIANCE * Guarantor: Alma Saucedo Account Type Relation to Patient Date of Phone Billing Address Personal/Family Self [address] [place] [phone] [employer] Member Subscriber Plan / Payer (Ef fective 2024-Present) Name:Alma Saucedo Relation to Subscriber:Spouse Name:LweisJose Date of :1960 (Home) Address: [address] [place] [id number] Payer ID:[id number] (NAIC) Type:Similar Pages HMO/PPO Address: [place] [id number] [place] [id number] Care Teams Mid Level Game Designer Relationship Specialty Start Date End Date Radha Carrillo NP [address] [place] [id number] PCP - General Family Medicine 03/21/24
== END 2025-03-08 10:47 | disposition home or self-care (01) ==
LOC: ANHAUDIO 10:46
PROVIDERS: PCP Family Medicine; Visit Provider Otolaryngology
DX: H93.11 Tinnitus, right ear (principal); R42 Dizziness and giddiness; Z82.2 Family history of deafness and hearing loss
CPT/HCPCS: 92557

== ENCOUNTER 2025-04-05 12:32 | Outpatient (CLI) | payer OTHER, SELFPAY ==
--- NOTE | ~2025-04-05 | MM_ITS ---
EXAMINATION: MM screening [facility] BI w [place] HISTORY: Screening TECHNIQUE: Craniocaudal and mediolateral oblique 3-D tomosynthesis images were obtained and synthetic 2-D images were generated. CAD analysis was submitted and interpreted. COMPARISON: Comparison to multiple prior studies sequentially, with oldest reviewed study dated 09/18/2017. BREAST PARENCHYMAL COMPOSITION: There are scattered areas of fibroglandular density. FINDINGS: There is no evidence of suspicious mass, calcification, or architectural distortion to suggest malignancy in either breast. Scattered benign-appearing calcifications are present. IMPRESSION: 1. No mammographic evidence of malignancy. 2. Recommend routine screening mammography in one year. BI-RADS Category 2: Benign finding(s). Reviewed, dictated and finalized at location B.
== END 2025-04-05 12:33 | disposition home or self-care (01) ==
LOC: MICIMG 12:35
PROVIDERS: PCP Family Medicine; Visit Provider Nurse Practitioner Obstetrics & Gynecology
DX: Z12.31 Encounter for screening mammogram for malignant neoplasm of breast (principal)
CPT/HCPCS: 77063; 77067